=== PATIENT | female | born 1955 | race Caucasian/White ===

== ENCOUNTER 2017-04-05 13:25 | Inpatient (IN) | payer OTHER ==
[~2017-04-05] VITALS: Ht 167.6 cm; Wt 122.5 kg
--- NOTE | ~2017-04-05 | WRIGHTHP ---
[place], [place] PATIENT HISTORY AND PHYSICAL EXAM NAME: CRISTIANA SHIPMAN [facility] #: [id number] UNIT #: [id number] ROOM: 502 DOCTOR: JOSH FORDE MD BIRTHDATE: [birth year] DOS: 04/05/2017 HISTORY OF PRESENT ILLNESS: The patient is a 61-year-old female with a past medical history of morbid obesity, type 2 diabetes mellitus, insulin requiring, mixed hyperlipidemia, coronary artery disease, status post two stent placements, benign essential hypertension, rheumatoid arthritis, chronic respiratory failure with oxygen dependence and COPD. The patient presented to the Emergency Department at [facility] with upper abdominal, back and lower chest pains, off and on with no nausea, no vomiting. After initial evaluation in the Emergency Department, she was admitted and seen by Dr. Rambo Ahmadi at the ER. The patient is feeling somewhat better now after initial treatment in the Emergency Department for nausea and vomiting. No increasing shortness of breath, no wheezing, no other GI or urinary symptoms. No diarrhea, no dizziness or fainting episodes. REVIEW OF SYSTEMS: LUNGS: No increasing shortness of breath or wheezing. GASTROINTESTINAL: The patient had some nausea and vomiting at home. No diarrhea. CARDIOVASCULAR SYSTEM: Lower chest pains, no palpitations. ALLERGIES: KNOWN ALLERGIES TO IODINE. FAMILY HISTORY: Noncontributory. HOME MEDICATIONS: Aspirin, metoprolol, losartan, Lipitor, aspirin. PHYSICAL EXAMINATION: GENERAL: Alert and oriented x 3, in no visible distress, morbidly obese, standard exam except for generalized weakness. IMPRESSION: 1. Viral gastroenteritis causing nausea, vomiting, abdominal pains and back pains. The pancreatic enzymes were not elevated. We will treat conservatively her symptoms. The patient's symptoms have improved with initial treatment in the Emergency Department and I will give her diet as tolerated. The patient is already hungry and wants to eat. 2. Chest pains from uncertain etiology. We will check cardiac enzymes and the patient is already scheduled for a cardiac stress test in the morning. 3. Type 2 diabetes mellitus. Blood sugars seem to be reasonably controlled. 4. Mixed hyperlipidemia, improving. Plan to continue the patient on Lipitor. 5. Benign essential hypertension. Monitor blood pressures and treat accordingly. [place], [place] PATIENT HISTORY AND PHYSICAL EXAM NAME: CRISTIANA SHIPMAN UNIT #: [id number] ROOM: [facility] DOCTOR: MAURISIO RICHARDSON,JOSH Pascual BIRTHDATE: [birth year] JOSH FORDE MD CM:HISPHYS:PATIENT HISTORY AND PHYSICAL EXAMINATION 10 37 JOSH FORDE MD 04/05/171938 interface
--- NOTE | ~2017-04-05 | ST ---
[place], [place] EXERCISE STRESS TEST REPORT [id number] #: [id number] ROOM: 502 DOCTOR: THEO PRAJAPATI MD BIRTHDATE: [birth year] DOS: 04/06/2017 LEXISCAN STRESS EKG REFERRING PHYSICIAN: Dr. Moy. INDICATION: Central chest pain. The patient underwent standard protocol Lexiscan stress EKG. The patient's baseline EKG showed normal sinus rhythm, right bundle branch block, left anterior fascicular block with known nonspecific ST-T wave changes. The patient's baseline heart rate 72 with a blood pressure 136/78. The patient's peak heart rate was 93 with a blood pressure of 130/84. The patient had no chest pain, no EKG changes, no ischemic changes. SUMMARY OF FINDINGS: Unremarkable Lexiscan stress, please see separate report for perfusion scan results. THEO PRAJAPATI MD CM:STRESS:EXERCISE STRESS TEST REPORT [id number] THEO PRAJAPATI MD
--- NOTE | ~2017-04-05 | DS ---
[place], [place] DISCHARGE SUMMARY NAME: CRISTIANA SHIPMAN [facility] #: [id number] UNIT #: [id number] ROOM: 502 DOCTOR: MAURISIO RICHARDSONJOSH Samara BIRTHDATE: [birth year] DOS: 04/07/2017 DISCHARGE DIAGNOSES: 1. Musculoskeletal chest pains. 2. Normal cardiac stress test. 3. CT angiogram of the chest negative for pulmonary embolism. 4. Morbid obesity. 5. Type 2 diabetes mellitus, insulin requiring. 6. Mixed type hyperlipidemia. 7. Coronary artery disease of the [place] vessels status post 2 stents placement. 8. Essential hypertension. 9. Rheumatoid arthritis. 10. Chronic respiratory failure from chronic obstructive pulmonary disease with oxygen dependence. The patient presented to [facility] Emergency Department with complaints of recurrent upper abdominal and lower chest pains and back pains. The patient was admitted and ruled out for myocardial infarction with serial cardiac enzymes. Following this, the patient was taken for a cardiac stress test by Dr. Ahmadi, the supply controller and the stress test was found to be normal. The patient's pains did resolve. 1. Abdominal and back pains with some nausea and vomiting earlier, apparently from viral gastroenteritis, resolved. 2. The patient with shortness of breath and chest pains, underwent a CT angiogram which was negative for any . 3. Mixed hyperlipidemia, treated and followed and controlled; treated with Lipitor. 4. History of benign essential hypertension. Blood pressures are monitored and treated. The patient takes metoprolol and refuses to take Losartan. The patient can be discharged to home after clearance by Dr. Ahmadi, the supply controller and to follow up with her primary care physician, Dr. Victor Manuel Eid in less than a week. LABORATORY DATA: Urine cultures were negative. Cardiac stress test and CT angiogram were negative. Normal serum electrolytes. DISCHARGE MANAGEMENT: Potassium chloride 10 mEq daily, Lipitor 40 mg a day, gabapentin 300 mg at bedtime, Paxil 30 mg a day, aspirin 81 mg a day, metoprolol 50 mg b.i.d., hydrochlorothiazide 25 mg a day, Losartan 100 mg a day which the patient refuses to take, bupivacaine eye drops as directed. Follow up with Dr. Victor Manuel Eid. [place], [place] DISCHARGE SUMMARY NAME: CRISTIANA SHIPMAN UNIT #: [id number] ROOM: 502 DOCTOR: JOSH FORDE MD BIRTHDATE: [birth year] JOSH FORDE MD CM:SAVANA [id number] JOSH FORDE MD 04/07/17 1346 interface
--- NOTE | ~2017-04-05 | PR ---
[place], [place] PROGRESS NOTE NAME[id number] UN[facility] #: [id number] ROOM: 502 DOCTOR: JOSH FORDE MD BIRTHDATE: [birth year] DOS: 04/06/2017 SUBJECTIVE: The patient underwent cardiac stress testing this morning and she was overall feeling better. OBJECTIVE: VITAL SIGNS: Blood pressure 140/73, heart rate 80 beats per minute, breathing 16 times per minute, temperature 98 degrees Fahrenheit. Standard exam except for obesity. IMPRESSION: 1. The patient with chest pain, normal cardiac stress test and cardiac enzymes. 2. Elevated D-dimmers, the patient is being checked for pulmonary embolism by Dr. Ahmadi. 3. Benign essential hypertension with controlled blood pressures with treatment. 4. Type 2 diabetes mellitus with blood sugars ranging between 100-200 range, being monitored and controlled. 5. Mixed hyperlipidemia, treated with Lipitor. 6. Nausea, vomiting and abdominal pains have improved, probably from viral gastroenteritis. JOSH FORDE MD CM:PNTRANS [phone] [id number] JOSH FORDE MD 04/06/17 2259 interface
[~2017-04-05 13:25] MED LIST: ASPIRIN ADULT L81 M1 PO; CIPROFLOXACIN500 M4 PO; CRESTOR10 MG PO; CRESTOR20 M1 PO; EFFIENT10 MG PO; FLUOXETINE10 M1 PO; GABAPENTIN300 M1 PO; Hyzaar 25 MG-101 TAB; JANUMET 1000 MG1 TAB PO; JANUMET XR 50-1 EAC1 PO; KEFLEX500 MG PO; LASIX40 MG PO; LEVEMIR100 U/ML SC; LOPRESSOR50 MG PO; LOSARTAN POTASS1 TA2 PO; METHOTREXATE1 PO1 PO; METHOTREXATE2.5 M1 PO; METOPROLOL SR50 MG PO; MICRO-K 10 EXT10 MEQ PO; MULTIVITAMIN FO1 CAP PO; NOVOLOG FLEX100 U/ML SC; PAROXETINE20 MG PO; PAXIL20 MG; PAXIL30 M2 PO; PERCOCET 325 MG1 TA2 PO; POTASSIUM CHLO10 ME4 PO; PREDNISONE10 MG PO; RANEXA1000 MG PO; RANEXA500 MG PO; REMICADE100 MG IM; REMICADE100 MG IV; TEMAZEPAM15 M1 PO; TRAMADOL HCL50 MG PO; TREXALL5 MG PO; TRICOR145 MG PO; TRICOR48 MG; VICODIN 500 MG-1 TAB PO
[2017-04-05 13:34] VITALS: BP 184/90
[2017-04-05 13:58] VITALS: BP 184/102
[2017-04-05 14:17] LABS: BASO % 0.4 % (0.0-1.0); EOS # 0.1 10*3/uL (0.0-0.4); EOS % 1.4 % (1.0-4.0); HEMATOCRIT 36.6 % (37.0-47.0); HEMOGLOBIN 11.9 g/dl (12.0-16.0); LYMPH # 1.3 10*3/uL (1.3-4.4); LYMPH % 15.3 % (27.0-41.0); MEAN CELL VOLUME 86.9 fl (81.0-99.0); MEAN CORPUSCULAR HGB 28.3 pg (27.0-31.0); MEAN CORPUSCULAR HGB CONC 32.5 g/dl (33.0-37.0); MEAN PLATELET VOLUME 9.6 fl (9.6-12.3); MONO # 0.6 10*3/uL (0.1-1.0); MONO % 7.1 % (3.0-9.0); NEUT # 6.4 10*3/uL (2.3-7.9); NEUT % 75.4 % (47.0-73.0); PLATELET COUNT AUTOMATED 190 10*3/uL (130-400); RED BLOOD COUNT 4.21 10*6/uL (4.10-5.10); RED CELL DISTRI WIDTH 15.9 % (0-14.5); WHITE BLOOD COUNT 8.4 10*3/uL (4.8-10.8)
[2017-04-05 14:23] VITALS: BP 164/90
[2017-04-05 14:26] LABS: PROTHROMBIN TIME 10.3 SECONDS (9.0-12.4)
[2017-04-05 14:33] LABS: ALBUMIN 3.1 gm/dl (3.1-4.5); ALKALINE PHOSPHATASE 67 U/L (45-117); BILIRUBIN, TOTAL 0.8 mg/dl (0.2-1.0); BUN 14 mg/dl (7-24); CARBON DIOXIDE 28 mmol/L (21-32); CHLORIDE 104 mmol/L (98-107); EST GLOM FILT AFRICAN AMERICAN > 60 ml/min; GLUCOSE 129 mg/dL (65-99); MAGNESIUM 1.5 mg/dL (1.5-2.1); SGOT/AST 20 IU/L (3-35); SGPT/ALT 21 U/L (12-78); SODIUM 140 mmol/L (136-145); TOTAL PROTEIN 8.1 gm/dL (6.4-8.2)
[2017-04-05 14:34] LABS: TROPONIN I < 0.015 ng/ml (<0.045)
[2017-04-05 15:55] VITALS: BP 164/79
[2017-04-05 16:32] VITALS: BP 181/95
[2017-04-05 20:00] VITALS: BP 142/74
[2017-04-05 20:00] LABS: BILIRUBIN NEGATIVE (NEGATIVE); BLOOD TRACE-INTACT (NEGATIVE); CLARITY CLOUDY (CLEAR); COLOR YELLOW (YELLOW); GLUCOSE NEGATIVE (NEGATIVE); KETONE NEGATIVE (NEGATIVE); LEUKO ESTERASE TRACE (NEGATIVE); NITRITE NEGATIVE (NEGATIVE); PH 5.5 (5.0-9.0); PROTEIN 2+ (NEGATIVE); SPECIFIC GRAVITY >= 1.030 (1.005-1.030); UROBILINOGEN 0.2 E.U./dl (0.2-1.0)
[2017-04-05 20:08] LABS: BACTERIA 1+; URINE REFLEX COMMENT YES (NO)
[2017-04-06] VITALS: BP 157/92
[2017-04-06 04:00] VITALS: BP 158/82
[2017-04-06 07:56] VITALS: BP 127/61
[2017-04-06 12:00] VITALS: BP 124/73
[2017-04-06 16:00] VITALS: BP 140/73
[2017-04-06 20:00] VITALS: BP 138/76
[2017-04-07] VITALS: BP 149/89
[2017-04-07 08:00] VITALS: BP 152/76
[2017-04-07 12:00] VITALS: BP 155/81
== END 2017-04-07 16:00 | disposition home or self-care (01) | DRG 392 ==
LOC: ED 13:25 → 5E 15:46 → EDHOLD 15:46 → 5E 15:48
PROVIDERS: Student in an Organized Health Care Education/Training Program
PROC: 5A09357 Assistance with Respiratory Ventilation, Less than 24 Consecutive Hours, Continuous Positive Airway Pressure (ICD-10-PCS; principal; 2017-04-06)
PROC: 4A02XM4 Measurement of Cardiac Total Activity, External Approach (ICD-10-PCS; principal; 2017-04-06)
PROC: 3E073KZ Introduction of Other Diagnostic Substance into Coronary Artery, Percutaneous Approach (ICD-10-PCS; principal; 2017-04-06)
DX: A08.4 Viral intestinal infection, unspecified (principal); J96.10 Chronic respiratory failure, unspecified whether with hypoxia or hypercapnia; I27.2 Other secondary pulmonary hypertension; F33.9 Major depressive disorder, recurrent, unspecified; Z68.41 Body mass index [BMI] 40.0-44.9, adult; Z99.81 Dependence on supplemental oxygen; E66.01 Morbid (severe) obesity due to excess calories; E11.9 Type 2 diabetes mellitus without complications; E78.2 Mixed hyperlipidemia; I25.10 Atherosclerotic heart disease of native coronary artery without angina pectoris; J44.9 Chronic obstructive pulmonary disease, unspecified; I10 Essential (primary) hypertension; M06.9 Rheumatoid arthritis, unspecified; R07.89 Other chest pain; Z91.041 Radiographic dye allergy status; Z95.818 Presence of other cardiac implants and grafts; Z79.2 Long term (current) use of antibiotics; Z79.82 Long term (current) use of aspirin; Z79.4 Long term (current) use of insulin; Z79.899 Other long term (current) drug therapy

== ENCOUNTER 2017-06-14 22:51 | Emergency (ER) | payer OTHER ==
[~2017-06-14] VITALS: Ht 167.6 cm; Wt 117.9 kg
[2017-06-14 22:57] VITALS: BP 190/91
== END 2017-06-15 01:22 | disposition home or self-care (01) ==
LOC: ED 22:51
DX: S46.911A Strain of unspecified muscle, fascia and tendon at shoulder and upper arm level, right arm, initial encounter (principal); I12.9 Hypertensive chronic kidney disease with stage 1 through stage 4 chronic kidney disease, or unspecified chronic kidney disease; E11.22 Type 2 diabetes mellitus with diabetic chronic kidney disease; N18.3 Chronic kidney disease, stage 3 (moderate); Z91.041 Radiographic dye allergy status; Z79.4 Long term (current) use of insulin; Z79.82 Long term (current) use of aspirin; Z79.899 Other long term (current) drug therapy; M06.9 Rheumatoid arthritis, unspecified; W19.XXXA Unspecified fall, initial encounter; Y93.89 Activity, other specified; Y92.89 Other specified places as the place of occurrence of the external cause; Y99.8 Other external cause status

== ENCOUNTER → 2017-06-22 | Outpatient (CLI) | payer OTHER ==
[2017-06-22 11:56] LABS: HEMATOCRIT 36.7 % (37.0-47.0); HEMOGLOBIN 11.8 g/dl (12.0-16.0); MEAN CELL VOLUME 92.2 fl (81.0-99.0); MEAN CORPUSCULAR HGB 29.6 pg (27.0-31.0); MEAN CORPUSCULAR HGB CONC 32.2 g/dl (33.0-37.0); MEAN PLATELET VOLUME 9.7 fl (9.6-12.3); NUCLEATED RED BLOOD CELL 0.2 % (0.0-0.0); RED BLOOD COUNT 3.98 10*6/uL (4.10-5.10); RED CELL DISTRI WIDTH 17.5 % (0-14.5); WHITE BLOOD COUNT 11.9 10*3/uL (4.8-10.8)
[2017-06-22 12:33] LABS: ALBUMIN 3.1 gm/dl (3.1-4.5); ALKALINE PHOSPHATASE 86 U/L (45-117); BUN 19 mg/dl (7-24); CHLORIDE 99 mmol/L (98-107); CHOLESTEROL 139 mg/dL (<200); CREATININE 0.95 mg/dL (0.55-1.02); HDL CHOLESTEROL 32 mg/dl (40-60); LDL CHOLESTEROL 46 mg/dL (9-159); POTASSIUM 4.3 mmol/L (3.5-5.1); SGOT/AST 21 IU/L (3-35); SGPT/ALT 24 U/L (12-78); SODIUM 138 mmol/L (136-145); TOTAL PROTEIN 8.3 gm/dL (6.4-8.2); TRIGLYCERIDES 307 mg/dl (<150); VLDL CHOLESTEROL 61 mg/dL (6-40)
== END | disposition home or self-care (01) ==
LOC: LAB 10:55
PROVIDERS: Family Medicine
DX: E11.9 Type 2 diabetes mellitus without complications (principal); I10 Essential (primary) hypertension

== ENCOUNTER → 2017-08-05 | Outpatient (CLI) | payer OTHER | END | disposition home or self-care (01) | LOC: LAB 17:09 | DX: M06.9 Rheumatoid arthritis, unspecified (principal); Z79.899 Other long term (current) drug therapy ==

== ENCOUNTER → 2017-08-12 | Outpatient (CLI) | payer OTHER ==
[2017-08-12 10:32] LABS: BASO % 0.4 % (0.0-1.0); EOS # 0.2 10*3/uL (0.0-0.4); HEMOGLOBIN 11.7 g/dl (12.0-16.0); LYMPH # 2.1 10*3/uL (1.3-4.4); LYMPH % 22.1 % (27.0-41.0); MEAN CELL VOLUME 91.6 fl (81.0-99.0); MEAN CORPUSCULAR HGB CONC 31.6 g/dl (33.0-37.0); MEAN PLATELET VOLUME 9.8 fl (9.6-12.3); MONO # 0.9 10*3/uL (0.1-1.0); MONO % 8.9 % (3.0-9.0); NEUT # 6.4 10*3/uL (2.3-7.9); NEUT % 66.2 % (47.0-73.0); PLATELET COUNT AUTOMATED 251 10*3/uL (130-400); RED BLOOD COUNT 4.04 10*6/uL (4.10-5.10); RED CELL DISTRI WIDTH 16.5 % (0-14.5); WHITE BLOOD COUNT 9.7 10*3/uL (4.8-10.8)
[2017-08-12 11:00] LABS: ALBUMIN 2.8 gm/dl (3.1-4.5); ALKALINE PHOSPHATASE 66 U/L (45-117); BUN 13 mg/dl (7-24); CHLORIDE 101 mmol/L (98-107); CHOLESTEROL 130 mg/dL (<200); CREATININE 0.88 mg/dL (0.55-1.02); HDL CHOLESTEROL 42 mg/dl (40-60); LDL CHOLESTEROL 43 mg/dL (9-159); POTASSIUM 3.7 mmol/L (3.5-5.1); SGOT/AST 13 IU/L (3-35); SGPT/ALT 17 U/L (12-78); SODIUM 139 mmol/L (136-145); TOTAL PROTEIN 7.8 gm/dL (6.4-8.2); TRIGLYCERIDES 226 mg/dl (<150); VLDL CHOLESTEROL 45 mg/dL (6-40)
== END | disposition home or self-care (01) ==
LOC: LAB 09:33
PROVIDERS: Internal Medicine
DX: M54.2 Cervicalgia (principal); R07.81 Pleurodynia; I10 Essential (primary) hypertension; E78.2 Mixed hyperlipidemia

== ENCOUNTER → 2017-10-04 | Outpatient (CLI) | payer OTHER | END | disposition home or self-care (01) | LOC: RAD 15:39 | DX: M25.572 Pain in left ankle and joints of left foot (principal); V89.2XXA Person injured in unspecified motor-vehicle accident, traffic, initial encounter; Y93.89 Activity, other specified; Y92.89 Other specified places as the place of occurrence of the external cause; Y99.8 Other external cause status ==

== ENCOUNTER → 2017-10-14 | Outpatient (CLI) | payer OTHER | END | disposition home or self-care (01) | LOC: US 08:28 | DX: S89.202A Unspecified physeal fracture of upper end of left fibula, initial encounter for closed fracture (principal) ==

== ENCOUNTER 2017-11-01 12:26 | Inpatient (IN) | payer OTHER ==
[~2017-11-01] VITALS: Ht 170.1 cm; Wt 118.4 kg
[2017-11-01] VITALS (7 sets, daily range): BP systolic 152–209; BP diastolic 82–98
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
[~2017-11-01 12:26] MED LIST changes: -LEVEMIR100 U/ML SC; +LEVEMIR100 UNIT/1 SQ; +LOPRESSOR50 M1 PO; -LOPRESSOR50 MG PO; +NOVOLOG FL100 UNIT/1 SQ; -REMICADE100 MG IM
[2017-11-01 13:38] LABS: BASO % 0.5 % (0.0-1.0); EOS # 0.2 10*3/uL (0.0-0.4); EOS % 2.1 % (1.0-4.0); HEMATOCRIT 35.4 % (37.0-47.0); HEMOGLOBIN 11.3 g/dl (12.0-16.0); LYMPH % 26.7 % (27.0-41.0); MEAN CELL VOLUME 90.8 fl (81.0-99.0); MEAN CORPUSCULAR HGB CONC 31.9 g/dl (33.0-37.0); MONO # 0.6 10*3/uL (0.1-1.0); MONO % 8.2 % (3.0-9.0); NEUT # 4.7 10*3/uL (2.3-7.9); NEUT % 61.7 % (47.0-73.0); PLATELET COUNT AUTOMATED 263 10*3/uL (130-400); RED CELL DISTRI WIDTH 18.3 % (0-14.5); WHITE BLOOD COUNT 7.7 10*3/uL (4.8-10.8)
[2017-11-01 13:52] LABS: ALBUMIN 3.2 gm/dl (3.1-4.5); ALKALINE PHOSPHATASE 75 U/L (45-117); BUN 13 mg/dl (7-24); CHLORIDE 103 mmol/L (98-107); CREATININE 0.92 mg/dL (0.55-1.02); SGOT/AST 19 IU/L (3-35); SGPT/ALT 21 U/L (12-78); SODIUM 141 mmol/L (136-145)
[2017-11-01] MEDS ORDERED: LOSARTAN POTASS50 M1 PO (15:15)
[2017-11-01 15:26] LABS: BILIRUBIN NEGATIVE (NEGATIVE); BLOOD TRACE-LYSED (NEGATIVE); CLARITY SL CLOUDY (CLEAR); COLOR YELLOW (YELLOW); GLUCOSE NEGATIVE (NEGATIVE); KETONE NEGATIVE (NEGATIVE); LEUKO ESTERASE NEGATIVE (NEGATIVE); NITRITE NEGATIVE (NEGATIVE); PH 6.5 (5.0-9.0); SPECIFIC GRAVITY 1.025 (1.005-1.030)
[2017-11-01 15:33] LABS: BACTERIA 2+
[2017-11-01] MEDS ORDERED: METHOTREXATE2.5 M1 PO (17:14)
[2017-11-02] VITALS: BP 144/59
[2017-11-02 08:00] VITALS: BP 134/66
[2017-11-02 12:00] VITALS: BP 135/83
[2017-11-02 16:00] VITALS: BP 143/79
[2017-11-02 20:00] VITALS: BP 136/65
[2017-11-03] VITALS: BP 141/76
[2017-11-03] MEDS ORDERED: LOSARTAN POTAS100 M1 PO (07:56)
[2017-11-03 08:00] VITALS: BP 134/63
[2017-11-03 12:00] VITALS: BP 137/75
[2017-11-03 14:00] VITALS: BP 137/75
== END 2017-11-03 16:02 | disposition home or self-care (01) | DRG 291 ==
LOC: ED 12:26 → 4E 15:09 → EDHOLD 15:09 → 4E 15:12
PROVIDERS: Nurse Practitioner Family
DX: I13.0 Hypertensive heart and chronic kidney disease with heart failure and stage 1 through stage 4 chronic kidney disease, or unspecified chronic kidney disease (principal); I50.31 Acute diastolic (congestive) heart failure; J96.10 Chronic respiratory failure, unspecified whether with hypoxia or hypercapnia; E11.22 Type 2 diabetes mellitus with diabetic chronic kidney disease; E66.01 Morbid (severe) obesity due to excess calories; F33.9 Major depressive disorder, recurrent, unspecified; Z68.41 Body mass index [BMI] 40.0-44.9, adult; I16.0 Hypertensive urgency; N18.3 Chronic kidney disease, stage 3 (moderate); R07.89 Other chest pain; I25.10 Atherosclerotic heart disease of native coronary artery without angina pectoris; M06.9 Rheumatoid arthritis, unspecified; J44.9 Chronic obstructive pulmonary disease, unspecified; E78.2 Mixed hyperlipidemia; Z95.5 Presence of coronary angioplasty implant and graft; Z91.041 Radiographic dye allergy status; Z79.82 Long term (current) use of aspirin; Z79.4 Long term (current) use of insulin; Z79.899 Other long term (current) drug therapy; Z87.81 Personal history of (healed) traumatic fracture

== ENCOUNTER → 2018-06-20 | Outpatient (CLI) | payer OTHER ==
[~2018-06-20] MED LIST changes: +LOSARTAN POTAS100 M1 PO; +LOSARTAN POTASS50 M1 PO
[2018-06-20 16:04] LABS: BASO # 0.1 10*3/uL (0.0-0.1); BASO % 0.5 % (0.0-1.0); EOS # 0.2 10*3/uL (0.0-0.4); EOS % 2.2 % (1.0-4.0); HEMATOCRIT 37.4 % (37.0-47.0); HEMOGLOBIN 12.2 g/dl (12.0-16.0); LYMPH # 2.6 10*3/uL (1.3-4.4); LYMPH % 27.3 % (27.0-41.0); MEAN CELL VOLUME 91.4 fl (81.0-99.0); MEAN CORPUSCULAR HGB 29.8 pg (27.0-31.0); MEAN CORPUSCULAR HGB CONC 32.6 g/dl (33.0-37.0); MEAN PLATELET VOLUME 9.4 fl (9.6-12.3); MONO # 0.5 10*3/uL (0.1-1.0); MONO % 5.4 % (3.0-9.0); NEUT % 64.3 % (47.0-73.0); PLATELET COUNT AUTOMATED 233 10*3/uL (130-400); RED BLOOD COUNT 4.09 10*6/uL (4.10-5.10); RED CELL DISTRI WIDTH 15.8 % (0-14.5); WHITE BLOOD COUNT 9.3 10*3/uL (4.8-10.8)
[2018-06-20 16:30] LABS: BUN 13 mg/dl (7-24); CREATININE 1.02 mg/dL (0.55-1.02); SGOT/AST 21 IU/L (3-35); SGPT/ALT 21 U/L (12-78)
== END | disposition home or self-care (01) ==
LOC: LAB 15:45
PROVIDERS: Specialist
DX: M06.9 Rheumatoid arthritis, unspecified (principal); Z79.899 Other long term (current) drug therapy

== ENCOUNTER → 2018-10-12 | Outpatient (CLI) | payer OTHER ==
[~2018-10-12] MED LIST changes: +MEDROL DOSEPAK4 MG PO
[2018-10-12 13:12] LABS: BASO # 0.1 10*3/uL (0.0-0.1); BASO % 0.7 % (0.0-1.0); EOS # 0.2 10*3/uL (0.0-0.4); EOS % 1.9 % (1.0-4.0); HEMATOCRIT 38.7 % (37.0-47.0); HEMOGLOBIN 12.5 g/dl (12.0-16.0); LYMPH # 1.8 10*3/uL (1.3-4.4); LYMPH % 22.3 % (27.0-41.0); MEAN CELL VOLUME 93.9 fl (81.0-99.0); MEAN CORPUSCULAR HGB 30.3 pg (27.0-31.0); MEAN CORPUSCULAR HGB CONC 32.3 g/dl (33.0-37.0); MEAN PLATELET VOLUME 9.8 fl (9.6-12.3); MONO # 0.7 10*3/uL (0.1-1.0); MONO % 8.1 % (3.0-9.0); NEUT # 5.4 10*3/uL (2.3-7.9); NEUT % 66.5 % (47.0-73.0); PLATELET COUNT AUTOMATED 267 10*3/uL (130-400); RED BLOOD COUNT 4.12 10*6/uL (4.10-5.10); RED CELL DISTRI WIDTH 16.5 % (0-14.5)
[2018-10-12 13:42] LABS: BUN 16 mg/dl (7-24); CREATININE 1.02 mg/dL (0.55-1.02); SGOT/AST 19 IU/L (3-35); SGPT/ALT 20 U/L (12-78)
== END | disposition home or self-care (01) ==
LOC: LAB 12:26
PROVIDERS: Specialist
DX: M06.9 Rheumatoid arthritis, unspecified (principal); Z79.899 Other long term (current) drug therapy

== ENCOUNTER 2018-11-06 16:46 | Emergency (ER) | payer OTHER ==
[~2018-11-06] VITALS: Ht 167.6 cm; Wt 120.2 kg
--- NOTE | ~2018-11-06 | EKG ---
[place], [place] ELECTROCARDIOGRAM REPORT NAME: CRISTIANA SHIPMAN UNIT #: [id number] ROOM: DOCTOR: EPIPHANY DRAFT REPORT BIRTHDATE: [birth year] [facility] Test Date: 2018-11-06 Test Time: 17:16:15 Pat Name: CRISTIANA SHIPMAN Department: Room: Gender: F Ep Tech: Carissa Chou : 1955 Requested By: DON GARCIA Order Number: [id number] Reading MD: Rambo Ahmadi MD Measurements Intervals [place] Rate: 86 P: 17 MI: 180 QRS: -68 QRSD: 142 T: 38 QT: 402 QTc: 481 Interpretive Statements Sinus rhythm Probable left atrial enlargement Right bundle branch block Left ventricular hypertrophy Inferior infarct, old Lateral leads are also involved No previous ECG available for comparison Electronically Signed On 11-10-2018 9:41:03 PST by Rambo Ahmadi MD CM:EKGRPT:ELECTROCARDIOGRAM REPORT [id number] DON GARCIA EPIPHANY DRAFT REPORT DON GARCIA
[~2018-11-06 16:46] MED LIST changes: -MEDROL DOSEPAK4 MG PO
[2018-11-06 17:25] LABS: BASO % 0.5 % (0.0-1.0); EOS # 0.1 10*3/uL (0.0-0.4); EOS % 2.1 % (1.0-4.0); HEMATOCRIT 35.5 % (37.0-47.0); HEMOGLOBIN 11.5 g/dl (12.0-16.0); LYMPH # 1.1 10*3/uL (1.3-4.4); LYMPH % 18.4 % (27.0-41.0); MEAN CELL VOLUME 95.4 fl (81.0-99.0); MEAN CORPUSCULAR HGB 30.9 pg (27.0-31.0); MEAN CORPUSCULAR HGB CONC 32.4 g/dl (33.0-37.0); MEAN PLATELET VOLUME 9.1 fl (9.6-12.3); MONO # 0.8 10*3/uL (0.1-1.0); MONO % 12.5 % (3.0-9.0); NEUT # 4.1 10*3/uL (2.3-7.9); PLATELET COUNT AUTOMATED 167 10*3/uL (130-400); RED BLOOD COUNT 3.72 10*6/uL (4.10-5.10); RED CELL DISTRI WIDTH 16.9 % (0-14.5); WHITE BLOOD COUNT 6.2 10*3/uL (4.8-10.8)
[2018-11-06 17:35] LABS: ACT PARTIAL THROMBO TIME 22.3 SECONDS (20.8-31.5); INTERNATIONAL NORM RATIO 0.9 (2.0-3.5)
[2018-11-06 17:48] LABS: ALBUMIN 2.5 gm/dl (3.1-4.5); ALKALINE PHOSPHATASE 77 U/L (45-117); BUN 9 mg/dl (7-24); CHLORIDE 101 mmol/L (98-107); LIPASE 184 U/L (73-393); POTASSIUM 3.8 mmol/L (3.5-5.1); SGOT/AST 20 IU/L (3-35); SGPT/ALT 20 U/L (12-78); SODIUM 140 mmol/L (136-145); TOTAL PROTEIN 7.4 gm/dL (6.4-8.2); TROPONIN I 0.016 ng/ml (<0.045)
[2018-11-06 18:44] VITALS: BP 143/72
[2018-11-06] MEDS ORDERED: MEDROL DOSEPAK4 MG PO (18:54)
== END 2018-11-06 19:03 | disposition home or self-care (01) ==
LOC: ED 16:46
PROVIDERS: Nurse Practitioner Family
DX: J44.9 Chronic obstructive pulmonary disease, unspecified (principal); E11.22 Type 2 diabetes mellitus with diabetic chronic kidney disease; I13.0 Hypertensive heart and chronic kidney disease with heart failure and stage 1 through stage 4 chronic kidney disease, or unspecified chronic kidney disease; N18.3 Chronic kidney disease, stage 3 (moderate); I50.9 Heart failure, unspecified; Z91.041 Radiographic dye allergy status; Z79.899 Other long term (current) drug therapy; Z79.82 Long term (current) use of aspirin; Z79.4 Long term (current) use of insulin; Z79.84 Long term (current) use of oral hypoglycemic drugs; Z90.710 Acquired absence of both cervix and uterus; Z90.49 Acquired absence of other specified parts of digestive tract

== ENCOUNTER → 2019-03-22 | Outpatient (CLI) | payer OTHER ==
[~2019-03-22] MED LIST changes: +MEDROL DOSEPAK4 MG PO
[2019-03-22 15:26] LABS: BASO % 0.5 % (0.0-1.0); EOS # 0.2 10*3/uL (0.0-0.4); EOS % 2.4 % (1.0-4.0); HEMOGLOBIN 11.3 g/dl (12.0-16.0); LYMPH # 1.5 10*3/uL (1.3-4.4); MEAN CORPUSCULAR HGB 30.1 pg (27.0-31.0); MEAN CORPUSCULAR HGB CONC 31.4 g/dl (33.0-37.0); MEAN PLATELET VOLUME 9.7 fl (9.6-12.3); MONO # 0.5 10*3/uL (0.1-1.0); MONO % 7.7 % (3.0-9.0); NEUT # 4.2 10*3/uL (2.3-7.9); NEUT % 65.8 % (47.0-73.0); PLATELET COUNT AUTOMATED 216 10*3/uL (130-400); RED BLOOD COUNT 3.75 10*6/uL (4.10-5.10); RED CELL DISTRI WIDTH 16.4 % (0-14.5); WHITE BLOOD COUNT 6.4 10*3/uL (4.8-10.8)
[2019-03-22 15:54] LABS: BUN 13 mg/dl (7-24); CHLORIDE 101 mmol/L (98-107); CREATININE 1.05 mg/dL (0.55-1.02); POTASSIUM 4.4 mmol/L (3.5-5.1); SGOT/AST 15 IU/L (3-35); SGPT/ALT 16 U/L (12-78); SODIUM 138 mmol/L (136-145); TOTAL PROTEIN 7.5 gm/dL (6.4-8.2)
[2019-03-22 15:57] LABS: ALKALINE PHOSPHATASE 63 U/L (45-117); CHOLESTEROL 143 mg/dL (<200); CPK 112 U/L (26-192); HDL CHOLESTEROL 48 mg/dl (40-60); LDL CHOLESTEROL 50 mg/dL (9-159); TRIGLYCERIDES 223 mg/dl (<150); VLDL CHOLESTEROL 45 mg/dL (6-40)
== END | disposition home or self-care (01) ==
LOC: LAB 14:24
PROVIDERS: Specialist
DX: E55.9 Vitamin D deficiency, unspecified (principal); J44.9 Chronic obstructive pulmonary disease, unspecified; E78.00 Pure hypercholesterolemia, unspecified; R53.83 Other fatigue; E11.40 Type 2 diabetes mellitus with diabetic neuropathy, unspecified; M06.9 Rheumatoid arthritis, unspecified

== ENCOUNTER → 2019-10-01 | Outpatient (CLI) | payer OTHER ==
[2019-10-01 13:16] LABS: HEMOGLOBIN 12.8 g/dl (12.0-16.0); MEAN CELL VOLUME 93.5 fl (81.0-99.0); MEAN CORPUSCULAR HGB 29.9 pg (27.0-31.0); MEAN PLATELET VOLUME 9.8 fl (9.6-12.3); RED BLOOD COUNT 4.28 10*6/uL (4.10-5.10); RED CELL DISTRI WIDTH 14.7 % (0-14.5); WHITE BLOOD COUNT 9.3 10*3/uL (4.8-10.8)
[2019-10-01 13:52] LABS: ALBUMIN 2.7 gm/dl (3.1-4.5); CREATININE 1.2 mg/dL (0.55-1.02); POTASSIUM 4.2 mmol/L (3.5-5.1)
[2019-10-01 13:53] LABS: TOTAL PROTEIN 7.6 gm/dL (6.4-8.2)
== END ==
LOC: LAB 12:16
PROVIDERS: Nurse Practitioner Family
DX: I12.9 Hypertensive chronic kidney disease with stage 1 through stage 4 chronic kidney disease, or unspecified chronic kidney disease (principal); E11.22 Type 2 diabetes mellitus with diabetic chronic kidney disease; N18.3 Chronic kidney disease, stage 3 (moderate); E55.9 Vitamin D deficiency, unspecified; R05 Cough

== ENCOUNTER → 2019-10-31 | Outpatient (CLI) | payer OTHER | END | disposition home or self-care (01) | LOC: CT 10-16 13:00 | DX: J47.9 Bronchiectasis, uncomplicated (principal); I25.10 Atherosclerotic heart disease of native coronary artery without angina pectoris ==

== ENCOUNTER 2019-12-11 18:24 | Inpatient (IN) | payer OTHER ==
[~2019-12-11] VITALS: Ht 167.6 cm; Wt 116.7 kg
[2019-12-11 18:32] VITALS: BP 215/96
[2019-12-11 18:44] VITALS: BP 202/98
[2019-12-11 19:32] VITALS: BP 211/101
[2019-12-11 19:54] LABS: BASO # 0.1 10*3/uL (0.0-0.1); BASO % 0.9 % (0.0-1.0); EOS # 0.2 10*3/uL (0.0-0.4); HEMATOCRIT 39.3 % (37.0-47.0); HEMOGLOBIN 12.4 g/dl (12.0-16.0); LYMPH # 1.9 10*3/uL (1.3-4.4); LYMPH % 24.1 % (27.0-41.0); MEAN CELL VOLUME 93.6 fl (81.0-99.0); MEAN CORPUSCULAR HGB 29.5 pg (27.0-31.0); MEAN CORPUSCULAR HGB CONC 31.6 g/dl (33.0-37.0); MEAN PLATELET VOLUME 9.8 fl (9.6-12.3); MONO # 0.7 10*3/uL (0.1-1.0); MONO % 8.3 % (3.0-9.0); NEUT % 63.1 % (47.0-73.0); PLATELET COUNT AUTOMATED 247 10*3/uL (130-400)
[2019-12-11 20:03] LABS: BILIRUBIN NEGATIVE (NEGATIVE); BLOOD 1+ (NEGATIVE); CLARITY CLEAR (CLEAR); COLOR YELLOW (YELLOW); GLUCOSE 1+ (NEGATIVE); KETONE NEGATIVE (NEGATIVE)
[2019-12-11 20:04] LABS: BACTERIA 1+; LEUKO ESTERASE NEGATIVE (NEGATIVE); NITRITE NEGATIVE (NEGATIVE); UROBILINOGEN 0.2 E.U./dl (0.2-1.0)
[2019-12-11 20:09] LABS: ACT PARTIAL THROMBO TIME 24.1 SECONDS (20.0-32.1); INTERNATIONAL NORM RATIO 0.9 (2.0-3.5)
[2019-12-11 20:11] LABS: ALBUMIN 2.3 gm/dl (3.1-4.5); CREATININE 1.3 mg/dL (0.55-1.02); POTASSIUM 4.4 mmol/L (3.5-5.1); TOTAL PROTEIN 7.3 gm/dL (6.4-8.2)
[2019-12-11 20:17] LABS: TROPONIN I 0.069 ng/ml (<0.045)
[2019-12-11 20:50] VITALS: BP 212/110
[2019-12-11 21:25] VITALS: BP 175/81
[2019-12-11] MEDS ORDERED: LABETALOL HCL200 MG PO (21:40)
[2019-12-11] MEDS ORDERED: METOPROLOL25 MG PO (21:41)
[2019-12-11] MEDS ORDERED: OYSTER SHELL 51 EACH PO (21:43)
[2019-12-11] MEDS ORDERED: PAROXETINE HCL40 MG PO (21:44)
[2019-12-11] MEDS ORDERED: POTASSIUM CHLO20 ME4 PO (21:44)
[2019-12-11] MEDS ORDERED: ENALAPRIL MALEA20 MG PO (21:45)
[2019-12-11] MEDS ORDERED: HYDROCHLOROTHIA25 M1 PO (21:45)
[2019-12-12] VITALS (8 sets, daily range): BP systolic 138–198; BP diastolic 71–88
[2019-12-13] VITALS: BP 131/60
[2019-12-13 08:00] VITALS: BP 136/78
[2019-12-13 12:00] VITALS: BP 132/63
[2019-12-13 16:00] VITALS: BP 135/59
[2019-12-13 20:00] VITALS: BP 136/79
[2019-12-14] VITALS: BP 130/65
[2019-12-14 06:12] LABS: BASO # 0.1 10*3/uL (0.0-0.1); BASO % 0.7 % (0.0-1.0); EOS # 0.2 10*3/uL (0.0-0.4); EOS % 2.2 % (1.0-4.0); HEMOGLOBIN 12.3 g/dl (12.0-16.0); LYMPH # 2.2 10*3/uL (1.3-4.4); LYMPH % 25.5 % (27.0-41.0); MEAN CELL VOLUME 93.5 fl (81.0-99.0); MEAN CORPUSCULAR HGB 28.7 pg (27.0-31.0); MEAN CORPUSCULAR HGB CONC 30.8 g/dl (33.0-37.0); MEAN PLATELET VOLUME 9.9 fl (9.6-12.3); MONO # 0.9 10*3/uL (0.1-1.0); NEUT # 5.3 10*3/uL (2.3-7.9); NEUT % 61.3 % (47.0-73.0); PLATELET COUNT AUTOMATED 240 10*3/uL (130-400); RED BLOOD COUNT 4.28 10*6/uL (4.10-5.10); RED CELL DISTRI WIDTH 15.4 % (0-14.5); WHITE BLOOD COUNT 8.7 10*3/uL (4.8-10.8)
[2019-12-14 06:45] LABS: CREATININE 1.33 mg/dL (0.55-1.02)
[2019-12-14 08:00] VITALS: BP 124/53; BP 138/64
[2019-12-14] MEDS ORDERED: LASIX40 MG PO (08:34)
[2019-12-14] MEDS ORDERED: HYDRALAZINE HYD50 MG PO (08:34)
[2019-12-14] MEDS ORDERED: METOPROLOL SUCC50 M1 PO (08:34)
== END 2019-12-14 12:02 | disposition home health service (06) | DRG 291 ==
LOC: ED 18:24 → EDHOLD 20:46 → 4E 20:46
PROVIDERS: Physician Assistant; ADMIT Internal Medicine
PROC: 4A02XM4 Measurement of Cardiac Total Activity, External Approach (ICD-10-PCS; principal; 2019-12-13)
PROC: 3E073KZ Introduction of Other Diagnostic Substance into Coronary Artery, Percutaneous Approach (ICD-10-PCS; principal; 2019-12-13)
DX: I13.0 Hypertensive heart and chronic kidney disease with heart failure and stage 1 through stage 4 chronic kidney disease, or unspecified chronic kidney disease (principal); I50.33 Acute on chronic diastolic (congestive) heart failure; J44.0 Chronic obstructive pulmonary disease with (acute) lower respiratory infection; J96.10 Chronic respiratory failure, unspecified whether with hypoxia or hypercapnia; I16.9 Hypertensive crisis, unspecified; Z68.41 Body mass index [BMI] 40.0-44.9, adult; E78.2 Mixed hyperlipidemia; E66.01 Morbid (severe) obesity due to excess calories; F32.9 Major depressive disorder, single episode, unspecified; R79.89 Other specified abnormal findings of blood chemistry; J20.9 Acute bronchitis, unspecified; I16.0 Hypertensive urgency; N18.3 Chronic kidney disease, stage 3 (moderate); E11.22 Type 2 diabetes mellitus with diabetic chronic kidney disease; M06.9 Rheumatoid arthritis, unspecified; I25.10 Atherosclerotic heart disease of native coronary artery without angina pectoris; Z95.5 Presence of coronary angioplasty implant and graft; Z79.4 Long term (current) use of insulin; Z79.82 Long term (current) use of aspirin; Z79.899 Other long term (current) drug therapy; Z91.041 Radiographic dye allergy status; Z90.710 Acquired absence of both cervix and uterus; Z80.8 Family history of malignant neoplasm of other organs or systems

== ENCOUNTER → 2020-04-01 | Outpatient (CLI) | payer OTHER ==
[~2020-04-01] MED LIST changes: +ENALAPRIL MALEA20 MG PO; +HYDRALAZINE HYD50 MG PO; +HYDROCHLOROTHIA25 M1 PO; +LABETALOL HCL200 MG PO; +METOPROLOL SUCC50 M1 PO; +METOPROLOL25 MG PO; +OYSTER SHELL 51 EACH PO; +PAROXETINE HCL40 MG PO; +POTASSIUM CHLO20 ME4 PO
[2020-04-01 15:25] LABS: HEMATOCRIT 41.4 % (37.0-47.0); MEAN CORPUSCULAR HGB 28.6 pg (27.0-31.0); MEAN CORPUSCULAR HGB CONC 31.4 g/dl (33.0-37.0); MEAN PLATELET VOLUME 9.6 fl (9.6-12.3); RED BLOOD COUNT 4.55 10*6/uL (4.10-5.10); RED CELL DISTRI WIDTH 14.9 % (0-14.5); WHITE BLOOD COUNT 8.3 10*3/uL (4.8-10.8)
[2020-04-01 15:42] LABS: ALBUMIN 2.5 gm/dl (3.1-4.5); CREATININE 1.25 mg/dL (0.55-1.02); POTASSIUM 4.3 mmol/L (3.5-5.1); TOTAL PROTEIN 7.4 gm/dL (6.4-8.2)
== END | disposition home or self-care (01) ==
LOC: LAB 15:02
PROVIDERS: Family Medicine
DX: I10 Essential (primary) hypertension (principal); E78.00 Pure hypercholesterolemia, unspecified; E55.9 Vitamin D deficiency, unspecified; E11.9 Type 2 diabetes mellitus without complications

== ENCOUNTER 2020-04-04 19:51 | Inpatient (IN) | payer OTHER ==
[2020-04-04] VITALS (8 sets, daily range): BP systolic 152–220; BP diastolic 76–110
[~2020-04-04] VITALS: Ht 170.1 cm; Wt 116.7 kg
[2020-04-04 20:50] LABS: BASO # 0.1 10*3/uL (0.0-0.1); BASO % 0.6 % (0.0-1.0); EOS # 0.1 10*3/uL (0.0-0.4); EOS % 1.5 % (1.0-4.0); HEMATOCRIT 37.7 % (37.0-47.0); LYMPH # 1.8 10*3/uL (1.3-4.4); LYMPH % 21.4 % (27.0-41.0); MEAN CELL VOLUME 90.6 fl (81.0-99.0); MEAN CORPUSCULAR HGB 29.3 pg (27.0-31.0); MEAN CORPUSCULAR HGB CONC 32.4 g/dl (33.0-37.0); MEAN PLATELET VOLUME 9.5 fl (9.6-12.3); MONO # 0.6 10*3/uL (0.1-1.0); MONO % 7.3 % (3.0-9.0); NEUT # 5.9 10*3/uL (2.3-7.9); NEUT % 68.7 % (47.0-73.0); PLATELET COUNT AUTOMATED 220 10*3/uL (130-400); RED BLOOD COUNT 4.16 10*6/uL (4.10-5.10); RED CELL DISTRI WIDTH 14.9 % (0-14.5); WHITE BLOOD COUNT 8.6 10*3/uL (4.8-10.8)
[2020-04-04 21:06] LABS: ALBUMIN 2.2 gm/dl (3.1-4.5); CREATININE 1.2 mg/dL (0.55-1.02); POTASSIUM 3.8 mmol/L (3.5-5.1); TROPONIN I 0.031 ng/ml (<0.045)
[2020-04-04 21:08] LABS: ACT PARTIAL THROMBO TIME 23.6 SECONDS (20.0-32.1); INTERNATIONAL NORM RATIO 0.9 (2.0-3.5)
--- NOTE | 2020-04-04 21:33 | NUR ---
CARDENE INFUSION RUNNING AT 5MG/HR.
--- NOTE | 2020-04-04 21:37 | NUR ---
CARDENE TITRATED UP TO 7.[address] HARO ORDER
--- NOTE | 2020-04-04 21:56 | NUR ---
CARDENE TITRATED TO 10MG/HR PER DR. HARO VO
[2020-04-05 00:40] VITALS: BP 160/84
--- NOTE | 2020-04-05 00:40 | NUR ---
A 64, admitted to [facility]U, under the services of Dr. MAURISIO RICHARDSON,JOSH Pascual with a diagnosis of HYPERTENSIVE EMERGENCY. Chief complaint is ELEVATED BLOOD PRESSURE. Patient arrived via bed from ER. Monitor applied. Initial assessment completed. Vital signs taken and recorded. DR. MAURISIO RICHARDSON,JOSH Pascual notified of admission to the unit. Orders received. See assessment for past medical history, medications and allergies. Patient and/or family oriented to unit. [facility] visitation policy reviewed. Clothing/patient valuable form completed. GWEN HUBER
[2020-04-05] MEDS ORDERED: HYDROCHLOROTHIA25 M1 PO (01:13)
--- NOTE | 2020-04-05 03:44 | NUR ---
Patients bp 184/86, coreg and apresoline given early. Will monitor.
[2020-04-05 04:00] VITALS: BP 184/86
[2020-04-05 06:29] VITALS: BP 140/58
--- NOTE | 2020-04-05 07:50 | NUR ---
RESTING IN BED. NO VOICED COMPLAINTS. BP 145/67. PULSE OX 94% ON 3L NASAL CANNULA. LUNGS CLEAR BILATERALLY. 1+ PITTING EDEMA NOTED TO BILATERAL LOWER LEGS.
[2020-04-05 12:00] VITALS: BP 158/81
--- NOTE | 2020-04-05 12:43 | NUR ---
SITTING UP ON SIDE OF BED BATHING. NO VOICED COMPLAINTS
--- NOTE | 2020-04-05 12:56 | NUR ---
Blindmaker in to talk to patient. Patient states lives at HOME with ALONE. There are 3 steps in the home. Physician: NANCY [facility]acy: [facility] Home health services: NONE Patient's level of ADLs: INDEPENDENT Patient has working utilities: YES DME: WALKER IF NEEDED Follow-up physician's appointment after d/c: PREFERS TO MAKE OWN ON DISCHARGE Does patient want to access PORTAL?: NO Discharge plan PT LIVES AT HOME ALONE AND IS INDEPENDENT IN HER CARE. DISCUSSED HOME NEEDS ON DISCHARGE WITH PT. PT DECLINES SHE HAS ANY NEEDS AT THIS TIME. WILL CONTINUE TO FOLLOW. PT PLANS ARE TO RETURN HOME WHEN MEDICALLY STABLE. STATES SHE WILL HAVE A RIDE HOME. JOSE E SMALLS
--- NOTE | 2020-04-05 14:00 | NUR ---
DR. FORDE HERE TO SEE PATIENT
--- NOTE | 2020-04-05 15:45 | NUR ---
MEDICATED WITH TYLENOL FOR COMPLAINTS OF A HEADACHE
[2020-04-05 16:00] VITALS: BP 146/69
[2020-04-05 20:00] VITALS: BP 118/57
--- NOTE | 2020-04-05 22:10 | NUR ---
NASAL CANNULA AT 2L APPLIED TO PATIENT AT THIS TIME. PATIENT PULSE OX DECREASES WITH EXERTION AND WHEN SLEEPING. WILL CONTINUE TO MONITOR.
[2020-04-06] VITALS: BP 136/70
--- NOTE | 2020-04-06 | NUR ---
PATIENT RESTING COMFORTABLY IN BED AT THIS TIME. PATIENT HAS NO C/O PAIN, DISCOMFORT, OR SHORTNESS OF BREATHE. PATIENT IS A&OX3 AND AMBULATORY W/O ASSIST. LEGS ELEVATED TO HELP WITH SWELLING. HOB ELEVATED. CALL LIGHT WITHIN REACH. SEE ASSESSMENT.
[2020-04-06 04:00] VITALS: BP 131/56
[2020-04-06 05:30] LABS: BUN 15 mg/dl (7-24); CHLORIDE 101 mmol/L (98-107); CREATININE 1.11 mg/dL (0.55-1.02); POTASSIUM 4.1 mmol/L (3.5-5.1); SODIUM 138 mmol/L (136-145)
--- NOTE | 2020-04-06 07:40 | NUR ---
RESTING IN BED. DROWSY. VOICES NO COMPLAINTS. BP 112/54. PULSE OX 93% ON 3L NASAL CANNULA. 1+ PITTING EDEMA NOTED TO BILATERAL LOWER LEGS. HEP LOCK INTACT TO JETT.
[2020-04-06 08:00] VITALS: BP 112/54
--- NOTE | 2020-04-06 10:16 | NUR ---
DR. FORDE HERE. MEDICATED WITH 2 TYLENOL FOR COMPLAINTS OF A HEADACHE.
[2020-04-06] MEDS ORDERED: NORMODYNE,TRAN200 MG PO (11:07)
[2020-04-06] MEDS ORDERED: IMDUR SA30 MG PO (11:07)
--- NOTE | 2020-04-06 12:31 | NUR ---
Discharge instructions reviewed with patient/family. Patient receptive and verbalizes understanding. Follow-up care arranged. Written instructions given to patient/family. DON AGUILAR
== END 2020-04-06 12:31 | disposition home or self-care (01) | DRG 304 ==
LOC: ED 19:51 → EDHOLD 23:38 → ICCU 23:59
PROVIDERS: Emergency Medicine Emergency Medical Services; ADMIT Internal Medicine
DX: I16.1 Hypertensive emergency (principal); E43 Unspecified severe protein-calorie malnutrition; I50.33 Acute on chronic diastolic (congestive) heart failure; F33.0 Major depressive disorder, recurrent, mild; Z68.41 Body mass index [BMI] 40.0-44.9, adult; E66.01 Morbid (severe) obesity due to excess calories; E78.2 Mixed hyperlipidemia; E11.621 Type 2 diabetes mellitus with foot ulcer; J43.2 Centrilobular emphysema; L97.522 Non-pressure chronic ulcer of other part of left foot with fat layer exposed; L03.032 Cellulitis of left toe; I25.10 Atherosclerotic heart disease of native coronary artery without angina pectoris; I13.0 Hypertensive heart and chronic kidney disease with heart failure and stage 1 through stage 4 chronic kidney disease, or unspecified chronic kidney disease; M06.9 Rheumatoid arthritis, unspecified; N18.3 Chronic kidney disease, stage 3 (moderate); E11.22 Type 2 diabetes mellitus with diabetic chronic kidney disease; Z91.041 Radiographic dye allergy status; Z90.710 Acquired absence of both cervix and uterus; Z95.5 Presence of coronary angioplasty implant and graft; Z82.49 Family history of ischemic heart disease and other diseases of the circulatory system; Z80.8 Family history of malignant neoplasm of other organs or systems; Z79.899 Other long term (current) drug therapy; Z79.82 Long term (current) use of aspirin

== ENCOUNTER 2020-07-01 17:09 | Inpatient (IN) | payer MEDICARE ==
[~2020-07-01] VITALS: Ht 167.6 cm; Wt 115.9 kg
[2020-07-01] VITALS (8 sets, daily range): BP systolic 143–199; BP diastolic 54–105
[~2020-07-01 17:09] MED LIST changes: +IMDUR SA30 MG PO; +NORMODYNE,TRAN200 MG PO
[2020-07-01 18:09] LABS: BASO % 0.4 % (0.0-1.0); EOS # 0.1 10*3/uL (0.0-0.4); EOS % 1.4 % (1.0-4.0); HEMATOCRIT 37.7 % (37.0-47.0); LYMPH # 1.7 10*3/uL (1.3-4.4); LYMPH % 18.4 % (27.0-41.0); MEAN CELL VOLUME 88.7 fl (81.0-99.0); MEAN CORPUSCULAR HGB 28.5 pg (27.0-31.0); MEAN CORPUSCULAR HGB CONC 32.1 g/dl (33.0-37.0); MEAN PLATELET VOLUME 10.2 fl (9.6-12.3); MONO # 0.7 10*3/uL (0.1-1.0); MONO % 7.1 % (3.0-9.0); NEUT # 6.6 10*3/uL (2.3-7.9); NEUT % 72.3 % (47.0-73.0); PLATELET COUNT AUTOMATED 251 10*3/uL (130-400); RED BLOOD COUNT 4.25 10*6/uL (4.10-5.10); RED CELL DISTRI WIDTH 14.7 % (0-14.5); WHITE BLOOD COUNT 9.1 10*3/uL (4.8-10.8)
[2020-07-01 18:20] LABS: ACT PARTIAL THROMBO TIME 24.8 SECONDS (20.0-32.1); INTERNATIONAL NORM RATIO 0.9 (2.0-3.5)
[2020-07-01 18:25] LABS: ALBUMIN 2.4 gm/dl (3.1-4.5); CREATININE 1.23 mg/dL (0.55-1.02); POTASSIUM 3.8 mmol/L (3.5-5.1); TOTAL PROTEIN 7.5 gm/dL (6.4-8.2); TROPONIN I 0.023 ng/ml (<0.045)
--- NOTE | 2020-07-01 21:24 | NUR ---
PT DENIES WOUNDS. NOTES HEALING SCABBED AREA TO RIGHT POSTERIOR LEG.
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
--- NOTE | 2020-07-01 23:40 | NUR ---
DR. CALVILLO NOTIFIED OF ADMISSION. NEW ORDERS RECEIVED.
--- NOTE | 2020-07-02 02:10 | NUR ---
DR. PRAJAPATI'S ANSWERING SERVICE NOTIFIED OF CONSULT FOR PATIENT FOR HYPERTENSIVE URGENCY AND SYNCOPE AND COLLAPSE.
[2020-07-02 08:00] VITALS: BP 177/77
[2020-07-02 12:00] VITALS: BP 118/56
--- NOTE | 2020-07-02 12:17 | NUR ---
Public Area Attendant in to talk to patient. Patient states lives at HOME with ALONE. There are 3 OUTSIDE steps in the home. Physician: NANCY [facility]acy: [facility] Home health services: NONE Patient's level of ADLs: INDEPENDENT Patient has working utilities: YES DME: NONE Follow-up physician's appointment after d/c: WILL BE MADE BY HOSPITALIST NURSE DIRECTOR ON DISCHARGE Does patient want to access PORTAL?: NO Discharge plan PT LIVES AT HOME ALONE AND IS INDEPENDENT IN HER CARE. STATES SHE DOES NOT HAVE HOME HEALTH AT THIS TIME BUT WOULD LIKE THEM ON DISCHARGE. WILL OBTAIN ORDER AND SEND REFERRAL. PLAN IS TO RETURN HOME WHEN MEDICALLY STABLE. WILL CONTINUE TO FOLLOW. WILL HAVE A RIDE HOME.. JOSE E SMALLS
--- NOTE | 2020-07-02 13:05 | NUR ---
eating lunch, not available for echo.
--- NOTE | 2020-07-02 13:39 | NUR ---
MEDICATED WITH NORCO FOR COMPLAINTS OF LEFT SIDED RIB PAIN. RATES PAIN A 10 ON A PAIN SCALE OF 1-10
--- NOTE | 2020-07-02 13:39 | NUR ---
TAKEN TO MRI
--- NOTE | 2020-07-02 14:30 | NUR ---
VOICES THAT PAIN IS DOWN TO A 6 ON A PAIN SCALE OF 1-10
[2020-07-02 16:00] VITALS: BP 105/42
[2020-07-02 20:00] VITALS: BP 102/50
--- NOTE | 2020-07-02 20:24 | NUR ---
KENYON GIVEN PER ORDER FOR RIB FRACTURE PAIN PER PT. RATED "9" SEE MAR.
--- NOTE | 2020-07-02 21:20 | NUR ---
NORCO EFFECTIVE FOR REDUCING PAIN PER PT.
--- NOTE | 2020-07-02 21:20 | NUR ---
CALLED DR. FORDE AND NOTIFIED HIM OF BP 102/50 ORDER RECEIVED.
--- NOTE | 2020-07-02 21:51 | NUR ---
PATIENT REFUSED NEUROTIN.
[2020-07-03] VITALS (7 sets, daily range): BP systolic 108–159; BP diastolic 46–91
--- NOTE | 2020-07-03 02:01 | NUR ---
24 HR chart check completed.
--- NOTE | 2020-07-03 04:15 | NUR ---
AWAKEND C/O HEADACKE RATED "6" AND RIB FRACTURE PAIN RATED "9" WITH MOVEMENT. NORCO GIVEN PER ORDER FOR PAIN. SEE MAR.
--- NOTE | 2020-07-03 05:10 | NUR ---
NORCO EFFECTIVE FOR PAIN PER PT.
[2020-07-03 05:26] LABS: BILIRUBIN Negative (Negative); BLOOD Negative (Negative); CLARITY Clear (Clear); COLOR Yellow (Yellow); GLUCOSE 3+ (Negative); KETONE Negative (Negative); LEUKO ESTERASE Negative (Negative); NITRITE Negative (Negative); PH 5.5 (4.5-8.0); SPECIFIC GRAVITY 1.025 (1.001-1.030)
[2020-07-03 05:44] LABS: EPITHELIAL CELLS 31-40
[2020-07-03 05:45] LABS: BACTERIA 1+; HYALINE CAST 0-2
--- NOTE | 2020-07-03 06:00 | NUR ---
BATH GIVEN PATIENT WANTED TO BE UP IN CHAIR WHEN DR. CALVILLO CAME IN THIS AM. PATIENT IS ALERT AND ORIENTED X3 AND HAS CALL LIGHT WITHIN REACH WHEN SHE NEEDS TO GET UP REFUSED BODY ALARM WHILE IN CHAIR AND SAID SHE WOULD CALL FOR ASSISTANCE.
--- NOTE | 2020-07-03 08:13 | NUR ---
SITTING UP IN CHAIR, NO COMPLAINTS VOICED ASIDE FROM SLIGHT KRAFT. BELIEVES NORCO CAUSED THIS. DENIES ANY NEEDS AT THIS TIME. AT BEDSIDE.
--- NOTE | 2020-07-03 12:18 | NUR ---
PT CONTINUES TO STATE SHE WILL RETURN HOME WHEN MEDICALLY STABLE. WOULD LIKE [facility] ON DISCHARGE. HOSPITALIST NURSE DIRECTOR NOTIFIED. WILL CONTINUE TO FOLLOW.
--- NOTE | 2020-07-03 12:46 | NUR ---
TYLENOL GIVEN FOR COMPLAINTS OF HEADACHE, WILL MONITOR. CALL LIGHT IN REACH.
--- NOTE | 2020-07-03 13:36 | NUR ---
PER PT, TYLENOL WAS "SOMEWHAT" EFFECTIVE FOR KRAFT. DENIES FURTHER NEEDS AT THIS TIME. CALL LIGHT IN REACH.
--- NOTE | 2020-07-03 16:27 | NUR ---
DILAUDID GIVEN FOR COMPLAINT OF RT BACK PAIN, WORSENS WITH MOVEMENT, PAIN RATED 8/10. WILL MONITOR. CALL LIGHT IN REACH.
--- NOTE | 2020-07-03 16:59 | NUR ---
PER PT, DILAUDID WAS EFFECTIVE. CALL LIGHT IN REACH.
--- NOTE | 2020-07-03 19:00 | NUR ---
ASSUMED CARE FOR THIS PT AT THIS TIME. PT C/O LT SIDE RIB PAIN S/P FALL. PT TEACHING GIVEN ON DILAUDID PRN TIMES. PT STATES SHE HAD DIARRHEA EARLIER TODAY. PT SITTING UP IN RECLINER CHAIR. CALL LIGHT IN REACH.
--- NOTE | 2020-07-03 21:13 | NUR ---
DR. CALVILLO NOTIFIED OF PT'S C/O NAUSEA FROM IV DILAUDID. T.O. RCVD FOR ZOFRAN IVP 8MG EVERY 8 HRS PRN FOR N/V.
--- NOTE | 2020-07-03 21:47 | NUR ---
PT MEDICATED W/ZOFRAN 8MG IVP FOR C/O NAUSEA. TYRELL SIRIA OFFERED AND ACCEPTED. WARM BLANKET PLACED OVER PT FOR C/O CHILLS. CALL LIGHT IN REACH. PT SITTING ON SIDE OF BED.
--- NOTE | 2020-07-03 22:47 | NUR ---
PT STATES THAT ZOFRAN WAS SOMEWHAT EFFECTIVE FOR NAUSEA RELIEF. PT STILL SITTING ON SIDE OF BED. PT CONTINUES TO C/O H/A AND LT RIB PAIN. WILL CONTINUE TO MONITOR.
--- NOTE | 2020-07-03 23:53 | NUR ---
PT ASSISTED TO LIE DOWN. PT DENYING NEED FOR PAIN MED AT THIS TIME. CALL LIGHT IN REACH.
[2020-07-04] VITALS: BP 154/71
[2020-07-04 08:00] VITALS: BP 114/56
[2020-07-04] MEDS ORDERED: GLIMEPIRIDE4 M1 PO (09:36)
--- NOTE | 2020-07-04 11:00 | NUR ---
REFERRAL FAXED TO [facility].
[2020-07-04 12:00] VITALS: BP 102/51
--- NOTE | 2020-07-04 13:06 | NUR ---
PT DIZZY, NAUSEA, AND NOT FELING WELL. REUESING TO STAY ANOTHER NIGHT. INFORMED OF PT REQUEST. SAID HER INSURANCE WOULD NOT ALLOW FOR ANOTHER NIGHT AND CARDIO AGREED TO DISCHARGE. NEW ORDERS FOR BMP, CBC REC'D. IF OK, PT IS STILL TO BE DISCHARGED TODAY.
[2020-07-04 13:22] LABS: BASO % 0.2 % (0.0-1.0); EOS # 0.1 10*3/uL (0.0-0.4); EOS % 1.3 % (1.0-4.0); HEMATOCRIT 33.9 % (37.0-47.0); LYMPH # 1.1 10*3/uL (1.3-4.4); LYMPH % 10.7 % (27.0-41.0); MEAN CELL VOLUME 92.6 fl (81.0-99.0); MEAN CORPUSCULAR HGB 28.4 pg (27.0-31.0); MEAN CORPUSCULAR HGB CONC 30.7 g/dl (33.0-37.0); MEAN PLATELET VOLUME 9.4 fl (9.6-12.3); MONO # 0.6 10*3/uL (0.1-1.0); MONO % 6.2 % (3.0-9.0); NEUT # 8.2 10*3/uL (2.3-7.9); NEUT % 81.4 % (47.0-73.0); PLATELET COUNT AUTOMATED 251 10*3/uL (130-400); RED BLOOD COUNT 3.66 10*6/uL (4.10-5.10); RED CELL DISTRI WIDTH 15.5 % (0-14.5); WHITE BLOOD COUNT 10.1 10*3/uL (4.8-10.8)
[2020-07-04 13:35] LABS: CREATININE 1.76 mg/dL (0.55-1.02); POTASSIUM 4.9 mmol/L (3.5-5.1)
--- NOTE | 2020-07-04 14:20 | NUR ---
[facility] NOT IN NETWORK WITH PT INSURANCE. FAXED TO [facility].
--- NOTE | 2020-07-04 15:48 | NUR ---
Discharge instructions reviewed with patient/family. Patient receptive and verbalizes understanding. Follow-up care arranged. Written instructions given to patient/family. KEVEN LYNN
== END 2020-07-04 16:38 | disposition home health service (06) | DRG 183 ==
LOC: ED 17:09 → EDHOLD 20:59 → 5E 20:59
PROVIDERS: Nurse Practitioner Family; ADMIT Internal Medicine; ATTEND Internal Medicine
DX: S22.42XA Multiple fractures of ribs, left side, initial encounter for closed fracture (principal); J96.00 Acute respiratory failure, unspecified whether with hypoxia or hypercapnia; I16.9 Hypertensive crisis, unspecified; E44.1 Mild protein-calorie malnutrition; I13.0 Hypertensive heart and chronic kidney disease with heart failure and stage 1 through stage 4 chronic kidney disease, or unspecified chronic kidney disease; E11.22 Type 2 diabetes mellitus with diabetic chronic kidney disease; M06.9 Rheumatoid arthritis, unspecified; I25.10 Atherosclerotic heart disease of native coronary artery without angina pectoris; N18.30 Chronic kidney disease, stage 3 unspecified; I65.29 Occlusion and stenosis of unspecified carotid artery; I16.0 Hypertensive urgency; E87.8 Other disorders of electrolyte and fluid balance, not elsewhere classified; J44.9 Chronic obstructive pulmonary disease, unspecified; I50.9 Heart failure, unspecified; W18.30XA Fall on same level, unspecified, initial encounter; E11.65 Type 2 diabetes mellitus with hyperglycemia; Z79.4 Long term (current) use of insulin; Z91.041 Radiographic dye allergy status; Y93.89 Activity, other specified; Y92.89 Other specified places as the place of occurrence of the external cause; Y99.8 Other external cause status

== ENCOUNTER → 2020-07-31 | Outpatient (CLI) | payer MEDICARE ==
[~2020-07-31] MED LIST changes: +CRESTOR10 M1 PO; +GLIMEPIRIDE4 M1 PO; +LABETALOL HYDR200 MG PO; +LANTUS SOL100 UNIT/1 SC; +NATEGLINIDE120 MG PO; +PAROXETINE40 MG PO; +TORSEMIDE10 MG PO; +XARELTO15 M1 PO
[2020-07-31 17:30] LABS: CREATININE 1.29 mg/dL (0.55-1.02); POTASSIUM 4.3 mmol/L (3.5-5.1)
== END | disposition home or self-care (01) ==
LOC: LAB 16:13
PROVIDERS: ATTEND Student in an Organized Health Care Education/Training Program
DX: I11.0 Hypertensive heart disease with heart failure (principal); I50.32 Chronic diastolic (congestive) heart failure

== ENCOUNTER 2020-08-08 10:38 | Emergency (ER) | payer MEDICARE ==
[~2020-08-08] VITALS: Wt 112.0 kg
[~2020-08-08 10:38] MED LIST changes: -CRESTOR10 M1 PO; -LABETALOL HYDR200 MG PO; -LANTUS SOL100 UNIT/1 SC; -NATEGLINIDE120 MG PO; -PAROXETINE40 MG PO; -TORSEMIDE10 MG PO; -XARELTO15 M1 PO
[2020-08-08 11:18] LABS: BASO # 0.1 10*3/uL (0.0-0.1); BASO % 0.9 % (0.0-1.0); EOS # 0.1 10*3/uL (0.0-0.4); EOS % 2.2 % (1.0-4.0); HEMATOCRIT 33.5 % (37.0-47.0); LYMPH # 1.2 10*3/uL (1.3-4.4); LYMPH % 19.8 % (27.0-41.0); MEAN CELL VOLUME 96.3 fl (81.0-99.0); MEAN CORPUSCULAR HGB 28.4 pg (27.0-31.0); MEAN CORPUSCULAR HGB CONC 29.6 g/dl (33.0-37.0); MEAN PLATELET VOLUME 9.2 fl (9.6-12.3); MONO # 0.6 10*3/uL (0.1-1.0); MONO % 10.7 % (3.0-9.0); NEUT # 3.8 10*3/uL (2.3-7.9); NEUT % 66.1 % (47.0-73.0); PLATELET COUNT AUTOMATED 232 10*3/uL (130-400); RED BLOOD COUNT 3.48 10*6/uL (4.10-5.10); RED CELL DISTRI WIDTH 15.7 % (0-14.5); WHITE BLOOD COUNT 5.8 10*3/uL (4.8-10.8)
[2020-08-08 11:34] LABS: ALBUMIN 2.8 gm/dl (3.1-4.5); ALKALINE PHOSPHATASE 78 U/L (45-117); BUN 22 mg/dl (7-24); CHLORIDE 103 mmol/L (98-107); CREATININE 1.52 mg/dL (0.55-1.02); LIPASE 308 U/L (73-393); POTASSIUM 4.8 mmol/L (3.5-5.1); SGOT/AST 15 IU/L (3-35); SGPT/ALT 21 U/L (12-78); SODIUM 142 mmol/L (136-145); TOTAL PROTEIN 7.2 gm/dL (6.4-8.2)
[2020-08-08 11:36] LABS: TROPONIN I < 0.015 ng/ml (<0.045)
[2020-08-08 12:00] VITALS: BP 160/74
== END 2020-08-08 12:41 | disposition home or self-care (01) ==
LOC: ED 10:38
PROVIDERS: Physician Assistant
DX: R60.0 Localized edema (principal); E11.9 Type 2 diabetes mellitus without complications; M19.90 Unspecified osteoarthritis, unspecified site; F41.9 Anxiety disorder, unspecified; E78.00 Pure hypercholesterolemia, unspecified; I11.0 Hypertensive heart disease with heart failure; I50.9 Heart failure, unspecified; Z79.899 Other long term (current) drug therapy; Z79.4 Long term (current) use of insulin

== ENCOUNTER → 2020-08-22 | Outpatient (CLI) | payer MEDICARE ==
[~2020-08-22] MED LIST changes: +CRESTOR10 M1 PO; +LABETALOL HYDR200 MG PO; +LANTUS SOL100 UNIT/1 SC; +NATEGLINIDE120 MG PO; +PAROXETINE40 MG PO; +TORSEMIDE10 MG PO; +XARELTO15 M1 PO
[2020-08-22 17:26] LABS: CREATININE 1.54 mg/dL (0.55-1.02); POTASSIUM 4.1 mmol/L (3.5-5.1)
== END | disposition home or self-care (01) ==
LOC: US 08-11 11:30 → LAB 15:36
PROVIDERS: ATTEND Internal Medicine
DX: I73.9 Peripheral vascular disease, unspecified (principal); I10 Essential (primary) hypertension; I65.29 Occlusion and stenosis of unspecified carotid artery; I25.10 Atherosclerotic heart disease of native coronary artery without angina pectoris

== ENCOUNTER 2020-09-22 14:04 | Inpatient (IN) | payer MEDICARE ==
[~2020-09-22] VITALS: Ht 172.7 cm; Wt 109.9 kg
[~2020-09-22 14:04] MED LIST changes: -CRESTOR10 M1 PO; -LABETALOL HYDR200 MG PO; -LANTUS SOL100 UNIT/1 SC; -NATEGLINIDE120 MG PO; -PAROXETINE40 MG PO; -TORSEMIDE10 MG PO; -XARELTO15 M1 PO
[2020-09-22 14:25] LABS: BASO % 0.3 % (0.0-1.0); EOS % 0.2 % (1.0-4.0); HEMATOCRIT 34.2 % (37.0-47.0); LYMPH # 1.5 10*3/uL (1.3-4.4); LYMPH % 12.2 % (27.0-41.0); MEAN CELL VOLUME 90.2 fl (81.0-99.0); MEAN CORPUSCULAR HGB 27.7 pg (27.0-31.0); MEAN CORPUSCULAR HGB CONC 30.7 g/dl (33.0-37.0); MEAN PLATELET VOLUME 9.5 fl (9.6-12.3); MONO # 0.2 10*3/uL (0.1-1.0); MONO % 1.8 % (3.0-9.0); NEUT # 10.1 10*3/uL (2.3-7.9); NEUT % 84.7 % (47.0-73.0); PLATELET COUNT AUTOMATED 272 10*3/uL (130-400); RED BLOOD COUNT 3.79 10*6/uL (4.10-5.10); RED CELL DISTRI WIDTH 15.7 % (0-14.5); WHITE BLOOD COUNT 11.9 10*3/uL (4.8-10.8)
[2020-09-22 14:36] LABS: ACT PARTIAL THROMBO TIME 33.3 SECONDS (20.0-32.1); INTERNATIONAL NORM RATIO 1.3 (2.0-3.5)
[2020-09-22 14:45] VITALS: BP 186/98
[2020-09-22 14:45] LABS: ALBUMIN 3.2 gm/dl (3.1-4.5); CREATININE 1.55 mg/dL (0.55-1.02); POTASSIUM 4.1 mmol/L (3.5-5.1); TOTAL PROTEIN 8.7 gm/dL (6.4-8.2)
[2020-09-22 14:46] LABS: TROPONIN I 0.034 ng/ml (<0.045)
[2020-09-22 16:27] VITALS: BP 190/90
[2020-09-22 17:11] VITALS: BP 140/80
[2020-09-22 18:00] VITALS: BP 183/82
[2020-09-22] MEDS ORDERED: GLIMEPIRIDE4 M1 PO (18:47)
[2020-09-22] MEDS ORDERED: LABETALOL HYDR200 MG PO (18:48)
[2020-09-22] MEDS ORDERED: CRESTOR10 M1 PO (18:49)
[2020-09-22] MEDS ORDERED: NATEGLINIDE120 MG PO (18:50)
[2020-09-22] MEDS ORDERED: PAROXETINE40 MG PO (18:51)
[2020-09-22] MEDS ORDERED: TORSEMIDE10 MG PO (18:51)
[2020-09-22] MEDS ORDERED: XARELTO15 M1 PO (18:53)
[2020-09-22 20:00] VITALS: BP 198/98
[2020-09-22] MEDS ORDERED: LANTUS SOL100 UNIT/1 SC (20:38)
[2020-09-23] VITALS: BP 140/77
[2020-09-23 06:50] LABS: BASO % 0.3 % (0.0-1.0); EOS # 0.2 10*3/uL (0.0-0.4); EOS % 1.2 % (1.0-4.0); HEMATOCRIT 31.9 % (37.0-47.0); LYMPH # 2.5 10*3/uL (1.3-4.4); LYMPH % 19.8 % (27.0-41.0); MEAN CELL VOLUME 91.9 fl (81.0-99.0); MEAN CORPUSCULAR HGB 27.4 pg (27.0-31.0); MEAN CORPUSCULAR HGB CONC 29.8 g/dl (33.0-37.0); MEAN PLATELET VOLUME 9.8 fl (9.6-12.3); MONO # 0.8 10*3/uL (0.1-1.0); MONO % 5.9 % (3.0-9.0); NEUT # 9.2 10*3/uL (2.3-7.9); NEUT % 71.9 % (47.0-73.0); PLATELET COUNT AUTOMATED 247 10*3/uL (130-400); RED BLOOD COUNT 3.47 10*6/uL (4.10-5.10); RED CELL DISTRI WIDTH 15.6 % (0-14.5); WHITE BLOOD COUNT 12.8 10*3/uL (4.8-10.8)
[2020-09-23 07:21] LABS: TRIGLYCERIDES 150 mg/dl (<150)
[2020-09-23 07:24] LABS: POTASSIUM 3.9 mmol/L (3.5-5.1)
[2020-09-23 07:26] LABS: LIPASE 1649 U/L (73-393)
[2020-09-23 07:27] LABS: CREATININE 1.44 mg/dL (0.55-1.02)
[2020-09-23 08:00] VITALS: BP 153/67
== END 2020-09-23 11:15 | disposition short-term general hospital (02) | DRG 280 ==
LOC: ED 14:04 → EDHOLD 16:38 → 5E 16:38 → EDHOLD 17:06 → 5E 17:30
PROVIDERS: Emergency Medicine; ADMIT Internal Medicine; ATTEND Internal Medicine
DX: I21.4 Non-ST elevation (NSTEMI) myocardial infarction (principal); K85.90 Acute pancreatitis without necrosis or infection, unspecified; I50.23 Acute on chronic systolic (congestive) heart failure; I13.0 Hypertensive heart and chronic kidney disease with heart failure and stage 1 through stage 4 chronic kidney disease, or unspecified chronic kidney disease; I43 Cardiomyopathy in diseases classified elsewhere; Z68.41 Body mass index [BMI] 40.0-44.9, adult; N18.32 Chronic kidney disease, stage 3b; E66.01 Morbid (severe) obesity due to excess calories; I48.0 Paroxysmal atrial fibrillation; J44.9 Chronic obstructive pulmonary disease, unspecified; E11.22 Type 2 diabetes mellitus with diabetic chronic kidney disease; I25.10 Atherosclerotic heart disease of native coronary artery without angina pectoris; M06.9 Rheumatoid arthritis, unspecified; G47.33 Obstructive sleep apnea (adult) (pediatric); E78.5 Hyperlipidemia, unspecified; Z91.041 Radiographic dye allergy status; Z90.710 Acquired absence of both cervix and uterus; Z99.81 Dependence on supplemental oxygen; Z95.5 Presence of coronary angioplasty implant and graft; Z82.49 Family history of ischemic heart disease and other diseases of the circulatory system; Z79.82 Long term (current) use of aspirin; Z79.899 Other long term (current) drug therapy

== ENCOUNTER 2020-11-11 11:38 | Observation (INO) | payer MEDICARE ==
[2020-11-11] VITALS (7 sets, daily range): BP systolic 114–148; BP diastolic 55–70
[~2020-11-11] VITALS: Ht 167.6 cm; Wt 109.8 kg
[~2020-11-11 11:38] MED LIST changes: +CRESTOR10 M1 PO; +LABETALOL HYDR200 MG PO; +LANTUS SOL100 UNIT/1 SC; +NATEGLINIDE120 MG PO; +PAROXETINE40 MG PO; +TORSEMIDE10 MG PO; +XARELTO15 M1 PO
[2020-11-11 13:37] LABS: BASO % 0.5 % (0.0-1.0); EOS # 0.2 10*3/uL (0.0-0.4); EOS % 2.5 % (1.0-4.0); HEMATOCRIT 23.5 % (37.0-47.0); LYMPH # 1.6 10*3/uL (1.3-4.4); LYMPH % 19.4 % (27.0-41.0); MEAN CELL VOLUME 91.4 fl (81.0-99.0); MEAN CORPUSCULAR HGB 28.8 pg (27.0-31.0); MEAN CORPUSCULAR HGB CONC 31.5 g/dl (33.0-37.0); MEAN PLATELET VOLUME 9.1 fl (9.6-12.3); MONO # 0.3 10*3/uL (0.1-1.0); MONO % 3.6 % (3.0-9.0); NEUT # 5.9 10*3/uL (2.3-7.9); NEUT % 73.6 % (47.0-73.0); PLATELET COUNT AUTOMATED 211 10*3/uL (130-400); RED BLOOD COUNT 2.57 10*6/uL (4.10-5.10); RED CELL DISTRI WIDTH 15.9 % (0-14.5); WHITE BLOOD COUNT 8.1 10*3/uL (4.8-10.8)
[2020-11-11 13:47] LABS: ACT PARTIAL THROMBO TIME 31.3 SECONDS (20.0-32.1); INTERNATIONAL NORM RATIO 1.3 (2.0-3.5)
[2020-11-11 13:52] LABS: ALKALINE PHOSPHATASE 91 U/L (45-117); BUN 34 mg/dl (7-24); CHLORIDE 105 mmol/L (98-107); CREATININE 1.42 mg/dL (0.55-1.02); LIPASE 958 U/L (73-393); POTASSIUM 4.4 mmol/L (3.5-5.1); SGOT/AST 14 IU/L (3-35); SGPT/ALT 21 U/L (12-78); SODIUM 139 mmol/L (136-145); TOTAL PROTEIN 7.2 gm/dL (6.4-8.2)
[2020-11-11 13:53] LABS: TROPONIN I < 0.015 ng/ml (<0.045)
[2020-11-11 14:19] LABS: BILIRUBIN Negative (Negative); BLOOD Negative (Negative); CLARITY Clear (Clear); COLOR Yellow (Yellow); GLUCOSE Negative (Negative); KETONE Negative (Negative); LEUKO ESTERASE Negative (Negative); NITRITE Negative (Negative); UROBILINOGEN 0.2 E.U./dl (0.0-1.0)
[2020-11-11 14:29] LABS: BACTERIA 1+
[2020-11-12] VITALS: BP 151/67
[2020-11-12 08:00] VITALS: BP 146/68
[2020-11-12 12:00] VITALS: BP 135/86
[2020-11-12 16:00] VITALS: BP 136/62
[2020-11-12 20:00] VITALS: BP 155/65
[2020-11-13] VITALS (11 sets, daily range): BP systolic 140–170; BP diastolic 51–90
[2020-11-13 08:48] LABS: BASO % 0.4 % (0.0-1.0); EOS # 0.2 10*3/uL (0.0-0.4); LYMPH # 1.4 10*3/uL (1.3-4.4); LYMPH % 20.3 % (27.0-41.0); MEAN CELL VOLUME 92.2 fl (81.0-99.0); MEAN CORPUSCULAR HGB 28.4 pg (27.0-31.0); MEAN CORPUSCULAR HGB CONC 30.8 g/dl (33.0-37.0); MEAN PLATELET VOLUME 8.8 fl (9.6-12.3); MONO # 0.5 10*3/uL (0.1-1.0); MONO % 6.7 % (3.0-9.0); NEUT # 4.8 10*3/uL (2.3-7.9); NEUT % 68.9 % (47.0-73.0); PLATELET COUNT AUTOMATED 195 10*3/uL (130-400); RED BLOOD COUNT 2.82 10*6/uL (4.10-5.10); RED CELL DISTRI WIDTH 15.5 % (0-14.5)
[2020-11-14] VITALS (11 sets, daily range): BP systolic 114–164; BP diastolic 6–79
[2020-11-14 06:05] LABS: BASO % 0.6 % (0.0-1.0); EOS # 0.3 10*3/uL (0.0-0.4); EOS % 4.6 % (1.0-4.0); HEMATOCRIT 28.2 % (37.0-47.0); LYMPH # 1.6 10*3/uL (1.3-4.4); LYMPH % 23.4 % (27.0-41.0); MEAN CELL VOLUME 93.1 fl (81.0-99.0); MEAN CORPUSCULAR HGB 28.4 pg (27.0-31.0); MEAN CORPUSCULAR HGB CONC 30.5 g/dl (33.0-37.0); MEAN PLATELET VOLUME 9.2 fl (9.6-12.3); MONO # 0.6 10*3/uL (0.1-1.0); MONO % 8.4 % (3.0-9.0); NEUT # 4.2 10*3/uL (2.3-7.9); NEUT % 62.4 % (47.0-73.0); PLATELET COUNT AUTOMATED 190 10*3/uL (130-400); RED BLOOD COUNT 3.03 10*6/uL (4.10-5.10); RED CELL DISTRI WIDTH 15.6 % (0-14.5); WHITE BLOOD COUNT 6.8 10*3/uL (4.8-10.8)
[2020-11-14 06:25] LABS: CREATININE 1.27 mg/dL (0.55-1.02); POTASSIUM 4.9 mmol/L (3.5-5.1)
[2020-11-15] VITALS: BP 150/64
[2020-11-15 05:55] VITALS: BP 169/74
[2020-11-15] MEDS ORDERED: Imdur SA60 MG PO (07:34)
[2020-11-15] MEDS ORDERED: TORSEMIDE10 MG PO (07:34)
[2020-11-15] MEDS ORDERED: METOPROLOL SUCC50 M1 PO (07:34)
[2020-11-15] MEDS ORDERED: NOVOLOG100 UNIT/1 SQ (07:38)
[2020-11-15 08:00] VITALS: BP 157/77
== END 2020-11-15 10:55 | disposition home or self-care (01) ==
LOC: ED 11:38 → EDHOLD 19:08 → 4E 19:08
PROVIDERS: Physician Assistant; ADMIT Internal Medicine; ATTEND Internal Medicine
DX: R07.89 Other chest pain (principal); I48.21 Permanent atrial fibrillation; J96.10 Chronic respiratory failure, unspecified whether with hypoxia or hypercapnia; I25.10 Atherosclerotic heart disease of native coronary artery without angina pectoris; J44.9 Chronic obstructive pulmonary disease, unspecified; M06.9 Rheumatoid arthritis, unspecified; E66.9 Obesity, unspecified; R51.9 Headache, unspecified; R42 Dizziness and giddiness; F32.9 Major depressive disorder, single episode, unspecified; D63.1 Anemia in chronic kidney disease; R53.83 Other fatigue; E11.22 Type 2 diabetes mellitus with diabetic chronic kidney disease; I12.9 Hypertensive chronic kidney disease with stage 1 through stage 4 chronic kidney disease, or unspecified chronic kidney disease; N18.9 Chronic kidney disease, unspecified; Z20.822 Contact with and (suspected) exposure to COVID-19; Z95.5 Presence of coronary angioplasty implant and graft; Z90.710 Acquired absence of both cervix and uterus; Z90.49 Acquired absence of other specified parts of digestive tract; Z98.890 Other specified postprocedural states

== ENCOUNTER 2020-11-22 13:00 | Inpatient (IN) | payer MEDICARE ==
[~2020-11-22] VITALS: Ht 167.6 cm; Wt 110.5 kg
[2020-11-22] VITALS (17 sets, daily range): BP systolic 94–149; BP diastolic 36–73
[~2020-11-22 13:00] MED LIST changes: +Imdur SA60 MG PO; +NOVOLOG100 UNIT/1 SQ
[2020-11-22 14:04] LABS: BASO % 0.3 % (0.0-1.0); EOS # 0.3 10*3/uL (0.0-0.4); EOS % 2.7 % (1.0-4.0); HEMATOCRIT 23.9 % (37.0-47.0); LYMPH # 1.5 10*3/uL (1.3-4.4); MEAN CELL VOLUME 94.5 fl (81.0-99.0); MEAN CORPUSCULAR HGB 28.9 pg (27.0-31.0); MEAN CORPUSCULAR HGB CONC 30.5 g/dl (33.0-37.0); MEAN PLATELET VOLUME 9.2 fl (9.6-12.3); MONO # 0.7 10*3/uL (0.1-1.0); MONO % 7.3 % (3.0-9.0); NEUT # 7.1 10*3/uL (2.3-7.9); NEUT % 73.3 % (47.0-73.0); PLATELET COUNT AUTOMATED 256 10*3/uL (130-400); RED BLOOD COUNT 2.53 10*6/uL (4.10-5.10); RED CELL DISTRI WIDTH 15.7 % (0-14.5); WHITE BLOOD COUNT 9.7 10*3/uL (4.8-10.8)
[2020-11-22 14:14] LABS: ACT PARTIAL THROMBO TIME 28.8 SECONDS (20.0-32.1); INTERNATIONAL NORM RATIO 1.2 (2.0-3.5)
[2020-11-22 14:20] LABS: CREATININE 1.55 mg/dL (0.55-1.02); POTASSIUM 5.5 mmol/L (3.5-5.1); TOTAL PROTEIN 6.8 gm/dL (6.4-8.2)
[2020-11-22 15:22] LABS: HEMATOCRIT 22.3 % (37.0-47.0)
[2020-11-22] MEDS ORDERED: Imdur SA60 MG PO (16:23)
[2020-11-22] MEDS ORDERED: XARELTO10 MG PO (16:29)
[2020-11-22] MEDS ORDERED: TORSEMIDE20 MG PO (16:29)
[2020-11-22] MEDS ORDERED: PLAVIX75 M1 PO (16:30)
[2020-11-22] MEDS ORDERED: NORVASC10 MG PO (16:31)
[2020-11-23] VITALS: BP 130/50
[2020-11-23 01:42] LABS: BASO % 0.4 % (0.0-1.0); EOS # 0.3 10*3/uL (0.0-0.4); EOS % 3.6 % (1.0-4.0); HEMATOCRIT 26.2 % (37.0-47.0); LYMPH # 1.5 10*3/uL (1.3-4.4); LYMPH % 20.3 % (27.0-41.0); MEAN CELL VOLUME 93.2 fl (81.0-99.0); MEAN CORPUSCULAR HGB 29.5 pg (27.0-31.0); MEAN CORPUSCULAR HGB CONC 31.7 g/dl (33.0-37.0); MEAN PLATELET VOLUME 9.5 fl (9.6-12.3); MONO # 0.4 10*3/uL (0.1-1.0); MONO % 5.6 % (3.0-9.0); NEUT # 5.2 10*3/uL (2.3-7.9); NEUT % 69.8 % (47.0-73.0); PLATELET COUNT AUTOMATED 201 10*3/uL (130-400); RED BLOOD COUNT 2.81 10*6/uL (4.10-5.10); RED CELL DISTRI WIDTH 15.1 % (0-14.5); WHITE BLOOD COUNT 7.5 10*3/uL (4.8-10.8)
[2020-11-23 04:00] VITALS: BP 142/64
[2020-11-23 05:12] LABS: BASO % 0.3 % (0.0-1.0); EOS # 0.3 10*3/uL (0.0-0.4); EOS % 3.8 % (1.0-4.0); HEMATOCRIT 27.1 % (37.0-47.0); LYMPH # 1.3 10*3/uL (1.3-4.4); LYMPH % 18.4 % (27.0-41.0); MEAN CELL VOLUME 93.1 fl (81.0-99.0); MEAN CORPUSCULAR HGB 29.9 pg (27.0-31.0); MEAN CORPUSCULAR HGB CONC 32.1 g/dl (33.0-37.0); MEAN PLATELET VOLUME 9.8 fl (9.6-12.3); MONO # 0.4 10*3/uL (0.1-1.0); MONO % 6.2 % (3.0-9.0); NEUT % 70.9 % (47.0-73.0); PLATELET COUNT AUTOMATED 198 10*3/uL (130-400); RED BLOOD COUNT 2.91 10*6/uL (4.10-5.10); RED CELL DISTRI WIDTH 15.3 % (0-14.5); WHITE BLOOD COUNT 7.1 10*3/uL (4.8-10.8)
[2020-11-23 05:43] LABS: CREATININE 1.41 mg/dL (0.55-1.02); POTASSIUM 5.6 mmol/L (3.5-5.1)
[2020-11-23 08:00] VITALS: BP 129/52
[2020-11-23 12:00] VITALS: BP 138/64
[2020-11-23 16:00] VITALS: BP 155/77
[2020-11-23 20:00] VITALS: BP 141/67
[2020-11-24] VITALS (10 sets, daily range): BP systolic 119–153; BP diastolic 33–69
[2020-11-24 06:20] LABS: BASO % 0.4 % (0.0-1.0); EOS # 0.3 10*3/uL (0.0-0.4); EOS % 4.1 % (1.0-4.0); HEMATOCRIT 23.5 % (37.0-47.0); LYMPH # 1.4 10*3/uL (1.3-4.4); LYMPH % 19.1 % (27.0-41.0); MEAN CELL VOLUME 94.4 fl (81.0-99.0); MEAN CORPUSCULAR HGB 29.7 pg (27.0-31.0); MEAN CORPUSCULAR HGB CONC 31.5 g/dl (33.0-37.0); MEAN PLATELET VOLUME 9.8 fl (9.6-12.3); MONO # 0.2 10*3/uL (0.1-1.0); NEUT # 5.3 10*3/uL (2.3-7.9); PLATELET COUNT AUTOMATED 193 10*3/uL (130-400); RED BLOOD COUNT 2.49 10*6/uL (4.10-5.10); WHITE BLOOD COUNT 7.2 10*3/uL (4.8-10.8)
[2020-11-24 06:44] LABS: CREATININE 1.21 mg/dL (0.55-1.02)
[2020-11-25] VITALS (21 sets, daily range): BP systolic 128–178; BP diastolic 35–90
[2020-11-25 06:11] LABS: HEMATOCRIT 21.7 % (37.0-47.0); MEAN CELL VOLUME 94.3 fl (81.0-99.0); MEAN CORPUSCULAR HGB 29.6 pg (27.0-31.0); MEAN CORPUSCULAR HGB CONC 31.3 g/dl (33.0-37.0); MEAN PLATELET VOLUME 9.5 fl (9.6-12.3); PLATELET COUNT AUTOMATED 202 10*3/uL (130-400); RED CELL DISTRI WIDTH 14.9 % (0-14.5)
[2020-11-25 06:16] LABS: CREATININE 1.16 mg/dL (0.55-1.02); POTASSIUM 4.4 mmol/L (3.5-5.1)
[2020-11-25 06:45] LABS: BASOPHILS 1 % (0-1); PLATELET SUFFICIENCY NORMAL (NORMAL); TOTAL CELLS COUNTED 100 #CELLS
[2020-11-25 19:13] LABS: HEMATOCRIT 27.1 % (37.0-47.0)
[2020-11-26] VITALS: BP 134/55
[2020-11-26 04:00] VITALS: BP 140/56
[2020-11-26 06:15] LABS: BASO % 0.3 % (0.0-1.0); EOS # 0.3 10*3/uL (0.0-0.4); EOS % 2.7 % (1.0-4.0); HEMATOCRIT 27.1 % (37.0-47.0); LYMPH # 1.6 10*3/uL (1.3-4.4); LYMPH % 17.3 % (27.0-41.0); MEAN CELL VOLUME 93.4 fl (81.0-99.0); MEAN CORPUSCULAR HGB CONC 32.1 g/dl (33.0-37.0); MEAN PLATELET VOLUME 9.5 fl (9.6-12.3); MONO # 0.5 10*3/uL (0.1-1.0); MONO % 5.1 % (3.0-9.0); NEUT # 6.7 10*3/uL (2.3-7.9); NEUT % 73.6 % (47.0-73.0); PLATELET COUNT AUTOMATED 216 10*3/uL (130-400); RED CELL DISTRI WIDTH 14.6 % (0-14.5); WHITE BLOOD COUNT 9.1 10*3/uL (4.8-10.8)
[2020-11-26 06:26] LABS: CREATININE 1.17 mg/dL (0.55-1.02); POTASSIUM 4.7 mmol/L (3.5-5.1)
[2020-11-26 08:00] VITALS: BP 176/82
[2020-11-26 12:00] VITALS: BP 121/54
[2020-11-26 16:00] VITALS: BP 136/66
[2020-11-26 20:00] VITALS: BP 136/60
[2020-11-27] VITALS: BP 154/68
[2020-11-27 04:00] VITALS: BP 142/70
[2020-11-27 06:17] LABS: BASO % 0.5 % (0.0-1.0); EOS # 0.2 10*3/uL (0.0-0.4); EOS % 3.3 % (1.0-4.0); HEMATOCRIT 27.4 % (37.0-47.0); LYMPH # 1.6 10*3/uL (1.3-4.4); LYMPH % 21.1 % (27.0-41.0); MEAN CELL VOLUME 94.8 fl (81.0-99.0); MEAN CORPUSCULAR HGB 29.8 pg (27.0-31.0); MEAN CORPUSCULAR HGB CONC 31.4 g/dl (33.0-37.0); MEAN PLATELET VOLUME 9.3 fl (9.6-12.3); MONO # 0.6 10*3/uL (0.1-1.0); MONO % 7.7 % (3.0-9.0); NEUT # 4.8 10*3/uL (2.3-7.9); NEUT % 65.4 % (47.0-73.0); PLATELET COUNT AUTOMATED 204 10*3/uL (130-400); RED BLOOD COUNT 2.89 10*6/uL (4.10-5.10); RED CELL DISTRI WIDTH 14.6 % (0-14.5); WHITE BLOOD COUNT 7.4 10*3/uL (4.8-10.8)
[2020-11-27 06:26] LABS: BUN 17 mg/dl (7-24); CHLORIDE 107 mmol/L (98-107); CREATININE 1.06 mg/dL (0.55-1.02); POTASSIUM 4.6 mmol/L (3.5-5.1); SODIUM 141 mmol/L (136-145)
[2020-11-27 08:00] VITALS: BP 150/72
[2020-11-27] MEDS ORDERED: LISINOPRIL10 M1 PO (09:39)
[2020-11-27] MEDS ORDERED: METOPROLOL SUCC25 M2 PO (09:54)
[2020-11-27 12:00] VITALS: BP 147/69
== END 2020-11-27 15:22 | disposition home health service (06) | DRG 813 ==
LOC: ED 13:00 → EDHOLD 15:33 → ICCU 15:33
PROVIDERS: Emergency Medicine; ADMIT Internal Medicine; ATTEND Internal Medicine
PROC: 30233N1 Transfusion of Nonautologous Red Blood Cells into Peripheral Vein, Percutaneous Approach (ICD-10-PCS; principal; 2020-11-22)
PROC: 0DB68ZX Excision of Stomach, Via Natural or Artificial Opening Endoscopic, Diagnostic (ICD-10-PCS; 2020-11-24)
PROC: 0DJD8ZZ Inspection of Lower Intestinal Tract, Via Natural or Artificial Opening Endoscopic (ICD-10-PCS; 2020-11-24)
DX: D68.32 Hemorrhagic disorder due to extrinsic circulating anticoagulants (principal); K29.71 Gastritis, unspecified, with bleeding; K57.31 Diverticulosis of large intestine without perforation or abscess with bleeding; N17.0 Acute kidney failure with tubular necrosis; I48.21 Permanent atrial fibrillation; D62 Acute posthemorrhagic anemia; I50.32 Chronic diastolic (congestive) heart failure; I13.0 Hypertensive heart and chronic kidney disease with heart failure and stage 1 through stage 4 chronic kidney disease, or unspecified chronic kidney disease; E87.5 Hyperkalemia; K52.9 Noninfective gastroenteritis and colitis, unspecified; T45.515A Adverse effect of anticoagulants, initial encounter; I25.10 Atherosclerotic heart disease of native coronary artery without angina pectoris; M06.9 Rheumatoid arthritis, unspecified; I95.9 Hypotension, unspecified; I48.0 Paroxysmal atrial fibrillation; E66.9 Obesity, unspecified; J43.2 Centrilobular emphysema; N18.32 Chronic kidney disease, stage 3b; Z79.01 Long term (current) use of anticoagulants; I25.2 Old myocardial infarction; Z90.710 Acquired absence of both cervix and uterus; Z79.4 Long term (current) use of insulin; Z95.5 Presence of coronary angioplasty implant and graft; Z79.899 Other long term (current) drug therapy; Y92.89 Other specified places as the place of occurrence of the external cause; Z68.39 Body mass index [BMI] 39.0-39.9, adult

== ENCOUNTER 2021-01-18 23:13 | Inpatient (IN) | payer MEDICARE ==
[~2021-01-18] VITALS: Ht 165.1 cm; Wt 100.4 kg
[~2021-01-18 23:13] MED LIST changes: +LISINOPRIL10 M1 PO; +METOPROLOL SUCC25 M2 PO; +NORVASC10 MG PO; +PLAVIX75 M1 PO; +TORSEMIDE20 MG PO; +XARELTO10 MG PO
[2021-01-18 23:18] VITALS: BP 111/59
[2021-01-19 01:06] LABS: BASO % 0.2 % (0.0-1.0); HEMATOCRIT 26.3 % (37.0-47.0); LYMPH # 0.6 10*3/uL (1.3-4.4); LYMPH % 11.9 % (27.0-41.0); MEAN CELL VOLUME 91.3 fl (81.0-99.0); MEAN CORPUSCULAR HGB 30.6 pg (27.0-31.0); MEAN CORPUSCULAR HGB CONC 33.5 g/dl (33.0-37.0); MEAN PLATELET VOLUME 10.5 fl (9.6-12.3); MONO # 0.9 10*3/uL (0.1-1.0); MONO % 18.5 % (3.0-9.0); NEUT # 3.4 10*3/uL (2.3-7.9); NEUT % 67.8 % (47.0-73.0); PLATELET COUNT AUTOMATED 125 10*3/uL (130-400); RED BLOOD COUNT 2.88 10*6/uL (4.10-5.10); RED CELL DISTRI WIDTH 17.7 % (0-14.5)
[2021-01-19 01:23] LABS: ALBUMIN 3.1 gm/dl (3.1-4.5); ALKALINE PHOSPHATASE 71 U/L (45-117); BUN 71 mg/dl (7-24); CHLORIDE 98 mmol/L (98-107); CREATININE 2.78 mg/dL (0.55-1.02); POTASSIUM 4.5 mmol/L (3.5-5.1); SGOT/AST 26 IU/L (3-35); SGPT/ALT 19 U/L (12-78); SODIUM 133 mmol/L (136-145); TOTAL PROTEIN 7.5 gm/dL (6.4-8.2)
[2021-01-19 01:24] LABS: TROPONIN I < 0.015 ng/ml (<0.045)
[2021-01-19 03:44] LABS: BILIRUBIN Negative (Negative); BLOOD Trace-Lysed (Negative); CLARITY Cloudy (Clear); COLOR Yellow (Yellow); GLUCOSE Negative (Negative); KETONE Trace (Negative); LEUKO ESTERASE Negative (Negative); NITRITE Negative (Negative); PH 5.5 (4.5-8.0); SPECIFIC GRAVITY 1.015 (1.001-1.030)
[2021-01-19 04:05] LABS: WBC 0-2 wbc/hpf (0-5)
[2021-01-19 06:21] LABS: POTASSIUM 4.3 mmol/L (3.5-5.1)
[2021-01-19 06:58] LABS: CREATININE 2.68 mg/dL (0.55-1.02)
[2021-01-19 07:01] LABS: HEMATOCRIT 26.2 % (37.0-47.0); MEAN CELL VOLUME 92.9 fl (81.0-99.0); MEAN CORPUSCULAR HGB 30.5 pg (27.0-31.0); MEAN CORPUSCULAR HGB CONC 32.8 g/dl (33.0-37.0); MEAN PLATELET VOLUME 10.9 fl (9.6-12.3); PLATELET COUNT AUTOMATED 131 10*3/uL (130-400); RED BLOOD COUNT 2.82 10*6/uL (4.10-5.10); RED CELL DISTRI WIDTH 17.5 % (0-14.5)
[2021-01-19 07:51] LABS: PLATELET SUFFICIENCY NORMAL (NORMAL); POLYCHROMASIA SLIGHT; TOTAL CELLS COUNTED 100 #CELLS
[2021-01-19 07:54] VITALS: BP 116/67
[2021-01-19 09:45] VITALS: BP 130/70
[2021-01-19 14:44] VITALS: BP 123/55
[2021-01-19 20:00] VITALS: BP 144/90
[2021-01-19 20:20] VITALS: BP 144/90
[2021-01-20] VITALS: BP 102/52; BP 95/51
[2021-01-20 07:19] LABS: HEMATOCRIT 25.7 % (37.0-47.0); MEAN CELL VOLUME 94.8 fl (81.0-99.0); MEAN CORPUSCULAR HGB 29.9 pg (27.0-31.0); MEAN CORPUSCULAR HGB CONC 31.5 g/dl (33.0-37.0); MEAN PLATELET VOLUME 9.9 fl (9.6-12.3); PLATELET COUNT AUTOMATED 147 10*3/uL (130-400); RED BLOOD COUNT 2.71 10*6/uL (4.10-5.10); RED CELL DISTRI WIDTH 18.4 % (0-14.5); WHITE BLOOD COUNT 4.4 10*3/uL (4.8-10.8)
[2021-01-20 07:46] LABS: CREATININE 2.06 mg/dL (0.55-1.02); POTASSIUM 4.5 mmol/L (3.5-5.1)
[2021-01-20 08:00] VITALS: BP 112/56
[2021-01-20 08:44] LABS: POLYCHROMASIA SLIGHT; TOTAL CELLS COUNTED 100 #CELLS
[2021-01-20 08:45] LABS: OVALOCYTES FEW; PLATELET SUFFICIENCY NORMAL (NORMAL)
[2021-01-20 12:00] VITALS: BP 112/60
[2021-01-20 16:00] VITALS: BP 104/62
[2021-01-20 20:00] VITALS: BP 90/43
[2021-01-21] VITALS: BP 98/47
[2021-01-21 06:41] LABS: HEMATOCRIT 24.1 % (37.0-47.0); MEAN CELL VOLUME 94.5 fl (81.0-99.0); MEAN CORPUSCULAR HGB 30.2 pg (27.0-31.0); MEAN PLATELET VOLUME 10.3 fl (9.6-12.3); PLATELET COUNT AUTOMATED 189 10*3/uL (130-400); RED BLOOD COUNT 2.55 10*6/uL (4.10-5.10); RED CELL DISTRI WIDTH 18.3 % (0-14.5); WHITE BLOOD COUNT 3.1 10*3/uL (4.8-10.8)
[2021-01-21 06:47] LABS: CREATININE 2.06 mg/dL (0.55-1.02); POTASSIUM 4.9 mmol/L (3.5-5.1)
[2021-01-21 07:27] LABS: ATYPICAL LYMPHS 2 % (0-0); TOTAL CELLS COUNTED 100 #CELLS
[2021-01-21 07:28] LABS: OVALOCYTES FEW; PLATELET SUFFICIENCY NORMAL (NORMAL); POLYCHROMASIA SLIGHT; ROULEAUX SLIGHT
[2021-01-21 08:00] VITALS: BP 97/43
[2021-01-21 12:00] VITALS: BP 96/48
[2021-01-21 16:00] VITALS: BP 88/47; BP 92/50
[2021-01-21 20:00] VITALS: BP 94/54
[2021-01-22] VITALS: BP 107/53
[2021-01-22 06:54] LABS: CREATININE 1.68 mg/dL (0.55-1.02); POTASSIUM 5.6 mmol/L (3.5-5.1)
[2021-01-22 08:00] VITALS: BP 108/52
[2021-01-22 16:00] VITALS: BP 101/56
[2021-01-22 20:00] VITALS: BP 129/53
[2021-01-23] VITALS: BP 152/71
[2021-01-23 06:27] LABS: CREATININE 1.41 mg/dL (0.55-1.02); POTASSIUM 5.5 mmol/L (3.5-5.1)
[2021-01-23 07:09] LABS: BASO % 0.4 % (0.0-1.0); EOS # 0.2 10*3/uL (0.0-0.4); EOS % 3.5 % (1.0-4.0); HEMATOCRIT 23.9 % (37.0-47.0); LYMPH # 0.8 10*3/uL (1.3-4.4); LYMPH % 15.1 % (27.0-41.0); MEAN CORPUSCULAR HGB 30.1 pg (27.0-31.0); MEAN CORPUSCULAR HGB CONC 31.4 g/dl (33.0-37.0); MEAN PLATELET VOLUME 10.1 fl (9.6-12.3); MONO # 0.8 10*3/uL (0.1-1.0); MONO % 14.9 % (3.0-9.0); NEUT # 3.5 10*3/uL (2.3-7.9); NEUT % 65.4 % (47.0-73.0); RED BLOOD COUNT 2.49 10*6/uL (4.10-5.10); RED CELL DISTRI WIDTH 17.4 % (0-14.5); WHITE BLOOD COUNT 5.4 10*3/uL (4.8-10.8)
[2021-01-23 07:24] LABS: PLATELET COUNT AUTOMATED 295 10*3/uL (130-400)
[2021-01-23 08:00] VITALS: BP 112/58
[2021-01-23 12:00] VITALS: BP 110/48
[2021-01-23] MEDS ORDERED: GLIMEPIRIDE4 M1 PO (12:38)
[2021-01-23 16:00] VITALS: BP 131/55
[2021-01-23 21:05] VITALS: BP 153/61
[2021-01-24] VITALS: BP 151/70
[2021-01-24 08:00] VITALS: BP 151/82
[2021-01-24 08:39] LABS: BASO % 0.3 % (0.0-1.0); EOS # 0.2 10*3/uL (0.0-0.4); EOS % 4.3 % (1.0-4.0); HEMATOCRIT 25.3 % (37.0-47.0); LYMPH # 0.8 10*3/uL (1.3-4.4); LYMPH % 20.9 % (27.0-41.0); MEAN CELL VOLUME 94.4 fl (81.0-99.0); MEAN CORPUSCULAR HGB 30.2 pg (27.0-31.0); MEAN PLATELET VOLUME 9.7 fl (9.6-12.3); MONO # 0.4 10*3/uL (0.1-1.0); MONO % 10.8 % (3.0-9.0); NEUT # 2.5 10*3/uL (2.3-7.9); NEUT % 63.2 % (47.0-73.0); PLATELET COUNT AUTOMATED 325 10*3/uL (130-400); RED BLOOD COUNT 2.68 10*6/uL (4.10-5.10)
[2021-01-24 08:56] LABS: ALBUMIN 2.7 gm/dl (3.1-4.5); CREATININE 1.29 mg/dL (0.55-1.02); POTASSIUM 5.2 mmol/L (3.5-5.1); TOTAL PROTEIN 6.9 gm/dL (6.4-8.2)
[2021-01-24 09:07] LABS: CREATININE,URINE 66.7 mg/dL (Not Estab.)
[2021-01-24 12:00] VITALS: BP 138/71
[2021-01-24 16:00] VITALS: BP 131/64
[2021-01-24 20:00] VITALS: BP 135/59
[2021-01-25] VITALS: BP 139/50
[2021-01-25 05:54] LABS: ALBUMIN 2.8 gm/dl (3.1-4.5); CREATININE 1.43 mg/dL (0.55-1.02); POTASSIUM 5.3 mmol/L (3.5-5.1)
[2021-01-25 05:58] LABS: TOTAL PROTEIN 7.3 gm/dL (6.4-8.2)
[2021-01-25 06:11] LABS: BASO % 0.3 % (0.0-1.0); HEMATOCRIT 24.1 % (37.0-47.0); LYMPH # 0.4 10*3/uL (1.3-4.4); MEAN CORPUSCULAR HGB 29.8 pg (27.0-31.0); MEAN CORPUSCULAR HGB CONC 32.4 g/dl (33.0-37.0); MONO # 0.1 10*3/uL (0.1-1.0); MONO % 3.4 % (3.0-9.0); NEUT % 85.7 % (47.0-73.0); PLATELET COUNT AUTOMATED 361 10*3/uL (130-400); RED BLOOD COUNT 2.62 10*6/uL (4.10-5.10); RED CELL DISTRI WIDTH 16.3 % (0-14.5); WHITE BLOOD COUNT 3.5 10*3/uL (4.8-10.8)
[2021-01-25 08:00] VITALS: BP 164/70
[2021-01-25 12:00] VITALS: BP 157/64
[2021-01-25 16:00] VITALS: BP 150/67
[2021-01-25 20:00] VITALS: BP 142/60; BP 173/73
[2021-01-26] VITALS: BP 157/63
[2021-01-26 06:17] LABS: HEMATOCRIT 22.6 % (37.0-47.0); LYMPH # 0.7 10*3/uL (1.3-4.4); LYMPH % 8.7 % (27.0-41.0); MEAN CELL VOLUME 90.8 fl (81.0-99.0); MEAN CORPUSCULAR HGB 30.1 pg (27.0-31.0); MEAN CORPUSCULAR HGB CONC 33.2 g/dl (33.0-37.0); MEAN PLATELET VOLUME 9.9 fl (9.6-12.3); MONO # 0.2 10*3/uL (0.1-1.0); MONO % 2.9 % (3.0-9.0); NEUT # 6.6 10*3/uL (2.3-7.9); NEUT % 87.7 % (47.0-73.0); PLATELET COUNT AUTOMATED 379 10*3/uL (130-400); RED BLOOD COUNT 2.49 10*6/uL (4.10-5.10); WHITE BLOOD COUNT 7.6 10*3/uL (4.8-10.8)
[2021-01-26 06:26] LABS: POTASSIUM 4.6 mmol/L (3.5-5.1)
[2021-01-26 06:36] LABS: ALBUMIN 2.8 gm/dl (3.1-4.5); CREATININE 1.37 mg/dL (0.55-1.02); TOTAL PROTEIN 7.1 gm/dL (6.4-8.2)
[2021-01-26 08:00] VITALS: BP 153/68
[2021-01-26 12:00] VITALS: BP 162/79
[2021-01-26 16:00] VITALS: BP 168/79
[2021-01-26 20:00] VITALS: BP 159/75
[2021-01-27] VITALS: BP 182/72
[2021-01-27 05:36] LABS: ALBUMIN 2.9 gm/dl (3.1-4.5); CREATININE 1.3 mg/dL (0.55-1.02); POTASSIUM 4.4 mmol/L (3.5-5.1); TOTAL PROTEIN 7.2 gm/dL (6.4-8.2)
[2021-01-27 05:53] LABS: HEMATOCRIT 23.9 % (37.0-47.0); MEAN CELL VOLUME 89.8 fl (81.0-99.0); MEAN CORPUSCULAR HGB 30.5 pg (27.0-31.0); MEAN CORPUSCULAR HGB CONC 33.9 g/dl (33.0-37.0); MEAN PLATELET VOLUME 9.8 fl (9.6-12.3); PLATELET COUNT AUTOMATED 411 10*3/uL (130-400); RED BLOOD COUNT 2.66 10*6/uL (4.10-5.10); WHITE BLOOD COUNT 9.5 10*3/uL (4.8-10.8)
[2021-01-27 06:53] LABS: BASOPHILS 1 % (0-1); PLATELET SUFFICIENCY HIGH (NORMAL); TOTAL CELLS COUNTED 100 #CELLS
[2021-01-27 08:00] VITALS: BP 188/86
[2021-01-27 12:00] VITALS: BP 166/65
[2021-01-27 16:00] VITALS: BP 152/61
[2021-01-27 20:00] VITALS: BP 154/89
[2021-01-28] VITALS: BP 171/89
[2021-01-28 06:06] LABS: HEMATOCRIT 25.9 % (37.0-47.0); MEAN CELL VOLUME 92.2 fl (81.0-99.0); MEAN CORPUSCULAR HGB 29.9 pg (27.0-31.0); MEAN CORPUSCULAR HGB CONC 32.4 g/dl (33.0-37.0); MEAN PLATELET VOLUME 9.7 fl (9.6-12.3); NUCLEATED RED BLOOD CELL 0.2 % (0.0-0.0); PLATELET COUNT AUTOMATED 379 10*3/uL (130-400); RED BLOOD COUNT 2.81 10*6/uL (4.10-5.10); WHITE BLOOD COUNT 12.5 10*3/uL (4.8-10.8)
[2021-01-28 06:26] LABS: CHLORIDE 101 mmol/L (98-107); POTASSIUM 4.2 mmol/L (3.5-5.1); SODIUM 135 mmol/L (136-145)
[2021-01-28 06:34] LABS: ALBUMIN 2.9 gm/dl (3.1-4.5); ALKALINE PHOSPHATASE 69 U/L (45-117); BUN 35 mg/dl (7-24); CPK 27 U/L (26-192); CREATININE 1.12 mg/dL (0.55-1.02); SGOT/AST 19 IU/L (3-35); SGPT/ALT 39 U/L (12-78); TOTAL PROTEIN 6.9 gm/dL (6.4-8.2)
[2021-01-28 07:23] LABS: PLATELET SUFFICIENCY NORMAL (NORMAL); TOTAL CELLS COUNTED 100 #CELLS
[2021-01-28 08:00] VITALS: BP 172/79
[2021-01-28 16:00] VITALS: BP 130/62
[2021-01-28 20:00] VITALS: BP 133/59
[2021-01-29] VITALS: BP 168/61
[2021-01-29 05:16] LABS: ALBUMIN 2.9 gm/dl (3.1-4.5); ALKALINE PHOSPHATASE 71 U/L (45-117); BUN 44 mg/dl (7-24); CHLORIDE 100 mmol/L (98-107); CPK 28 U/L (26-192); POTASSIUM 4.2 mmol/L (3.5-5.1); SGOT/AST 16 IU/L (3-35); SGPT/ALT 37 U/L (12-78); SODIUM 134 mmol/L (136-145); TOTAL PROTEIN 6.8 gm/dL (6.4-8.2)
[2021-01-29 06:18] LABS: HEMATOCRIT 25.8 % (37.0-47.0); MEAN CELL VOLUME 92.1 fl (81.0-99.0); MEAN CORPUSCULAR HGB 30.4 pg (27.0-31.0); MEAN CORPUSCULAR HGB CONC 32.9 g/dl (33.0-37.0); MEAN PLATELET VOLUME 9.8 fl (9.6-12.3); NUCLEATED RED BLOOD CELL 0.2 % (0.0-0.0); PLATELET COUNT AUTOMATED 372 10*3/uL (130-400); RED CELL DISTRI WIDTH 16.2 % (0-14.5); WHITE BLOOD COUNT 12.7 10*3/uL (4.8-10.8)
[2021-01-29 07:22] LABS: PLATELET SUFFICIENCY NORMAL (NORMAL); POLYCHROMASIA SLIGHT; TOTAL CELLS COUNTED 100 #CELLS
[2021-01-29 07:23] LABS: OVALOCYTES FEW; SCHISTOCYTES FEW
[2021-01-29 08:00] VITALS: BP 167/51
[2021-01-29 12:00] VITALS: BP 154/74
== END 2021-01-29 15:15 | disposition home health service (06) | DRG 177 ==
LOC: ED 23:13 → 4E 01-19 03:28 → EDHOLD 01-19 03:28 → 5E 01-19 03:28 → 4E 01-23 21:11
PROVIDERS: Emergency Medicine; Internal Medicine; Internal Medicine Critical Care Medicine; Internal Medicine Nephrology; ADMIT Internal Medicine; ATTEND Internal Medicine
PROC: XW033E5 Introduction of Remdesivir Anti-infective into Peripheral Vein, Percutaneous Approach, New Technology Group 5 (ICD-10-PCS; principal; 2021-01-25)
DX: U07.1 COVID-19 (principal); N17.0 Acute kidney failure with tubular necrosis; J96.21 Acute and chronic respiratory failure with hypoxia; J12.82 Pneumonia due to coronavirus disease 2019; I13.0 Hypertensive heart and chronic kidney disease with heart failure and stage 1 through stage 4 chronic kidney disease, or unspecified chronic kidney disease; I50.32 Chronic diastolic (congestive) heart failure; K92.2 Gastrointestinal hemorrhage, unspecified; I48.21 Permanent atrial fibrillation; F33.9 Major depressive disorder, recurrent, unspecified; E87.1 Hypo-osmolality and hyponatremia; N18.4 Chronic kidney disease, stage 4 (severe); M06.9 Rheumatoid arthritis, unspecified; A08.4 Viral intestinal infection, unspecified; E11.22 Type 2 diabetes mellitus with diabetic chronic kidney disease; R62.7 Adult failure to thrive; I25.10 Atherosclerotic heart disease of native coronary artery without angina pectoris; E86.0 Dehydration; E11.649 Type 2 diabetes mellitus with hypoglycemia without coma; I95.9 Hypotension, unspecified; E11.42 Type 2 diabetes mellitus with diabetic polyneuropathy; K59.00 Constipation, unspecified; D63.8 Anemia in other chronic diseases classified elsewhere; E11.65 Type 2 diabetes mellitus with hyperglycemia; E83.51 Hypocalcemia; E87.5 Hyperkalemia; Z79.4 Long term (current) use of insulin; Z99.81 Dependence on supplemental oxygen; Z68.39 Body mass index [BMI] 39.0-39.9, adult; Z95.5 Presence of coronary angioplasty implant and graft; Z91.041 Radiographic dye allergy status; Z90.710 Acquired absence of both cervix and uterus; Z82.49 Family history of ischemic heart disease and other diseases of the circulatory system; Z68.38 Body mass index [BMI] 38.0-38.9, adult

== ENCOUNTER 2022-03-16 11:01 | Inpatient (IN) | payer OTHER ==
[~2022-03-16] VITALS: Ht 170.1 cm; Wt 109.3 kg
[2022-03-16 11:24] VITALS: BP 150/73
[2022-03-16 12:00] VITALS: BP 150/73
[2022-03-16] MEDS ORDERED: FARXIGA5 M1 PO (12:45)
[2022-03-16] MEDS ORDERED: HYDROXYZINE HCL25 MG PO (12:45)
[2022-03-16 13:17] LABS: BASO # 0.1 10*3/uL (0.0-0.1); BASO % 0.6 % (0.0-1.0); EOS # 0.3 10*3/uL (0.0-0.4); HEMATOCRIT 33.9 % (37.0-47.0); LYMPH # 1.7 10*3/uL (1.3-4.4); LYMPH % 18.5 % (27.0-41.0); MEAN CELL VOLUME 93.6 fl (81.0-99.0); MEAN CORPUSCULAR HGB 29.6 pg (27.0-31.0); MEAN CORPUSCULAR HGB CONC 31.6 g/dl (33.0-37.0); MEAN PLATELET VOLUME 9.4 fl (9.6-12.3); MONO # 0.4 10*3/uL (0.1-1.0); MONO % 4.1 % (3.0-9.0); NEUT # 6.6 10*3/uL (2.3-7.9); NEUT % 72.9 % (47.0-73.0); PLATELET COUNT AUTOMATED 202 10*3/uL (130-400); RED BLOOD COUNT 3.62 10*6/uL (4.10-5.10); RED CELL DISTRI WIDTH 17.8 % (0-14.5)
[2022-03-16 13:30] LABS: CREATININE 1.58 mg/dL (0.55-1.02); POTASSIUM 4.1 mmol/L (3.5-5.1)
[2022-03-16 16:00] VITALS: BP 144/64
[2022-03-16 20:00] VITALS: BP 133/67
[2022-03-17] VITALS: BP 152/62
[2022-03-17 08:00] VITALS: BP 156/76
[2022-03-17 12:00] VITALS: BP 142/71
[2022-03-17 16:00] VITALS: BP 115/57
[2022-03-17 20:00] VITALS: BP 155/70
[2022-03-18] VITALS: BP 161/71
[2022-03-18 08:00] VITALS: BP 154/80
[2022-03-18 12:00] VITALS: BP 150/57
[2022-03-18 16:00] VITALS: BP 159/61
[2022-03-18 20:00] VITALS: BP 151/68
[2022-03-19] VITALS: BP 161/81
[2022-03-19 06:28] LABS: BASO % 0.5 % (0.0-1.0); EOS # 0.2 10*3/uL (0.0-0.4); EOS % 3.3 % (1.0-4.0); HEMATOCRIT 33.7 % (37.0-47.0); LYMPH # 1.8 10*3/uL (1.3-4.4); LYMPH % 27.5 % (27.0-41.0); MEAN CELL VOLUME 93.1 fl (81.0-99.0); MEAN CORPUSCULAR HGB 29.8 pg (27.0-31.0); MEAN PLATELET VOLUME 9.9 fl (9.6-12.3); MONO # 0.8 10*3/uL (0.1-1.0); MONO % 12.8 % (3.0-9.0); NEUT # 3.6 10*3/uL (2.3-7.9); NEUT % 55.1 % (47.0-73.0); PLATELET COUNT AUTOMATED 204 10*3/uL (130-400); RED BLOOD COUNT 3.62 10*6/uL (4.10-5.10); RED CELL DISTRI WIDTH 18.1 % (0-14.5); WHITE BLOOD COUNT 6.6 10*3/uL (4.8-10.8)
[2022-03-19 06:36] LABS: CREATININE 1.2 mg/dL (0.55-1.02); POTASSIUM 3.9 mmol/L (3.5-5.1)
[2022-03-19 06:38] LABS: TOTAL PROTEIN 7.4 gm/dL (6.4-8.2)
[2022-03-19] MEDS ORDERED: LASIX20 MG PO (07:46)
[2022-03-19] MEDS ORDERED: METOPROLOL SUCC25 M2 PO (07:46)
[2022-03-19] MEDS ORDERED: SIMVASTATIN10 MG PO (07:46)
[2022-03-19] MEDS ORDERED: VIBRAMYCIN HYC100 MG PO (07:47)
[2022-03-19 08:00] VITALS: BP 151/69
== END 2022-03-19 11:23 | disposition home health service (06) | DRG 177 ==
LOC: 5E 11:01
PROVIDERS: ADMIT Internal Medicine; ATTEND Internal Medicine
DX: J15.6 Pneumonia due to other Gram-negative bacteria (principal); J96.21 Acute and chronic respiratory failure with hypoxia; E44.1 Mild protein-calorie malnutrition; N17.9 Acute kidney failure, unspecified; J44.0 Chronic obstructive pulmonary disease with (acute) lower respiratory infection; E11.22 Type 2 diabetes mellitus with diabetic chronic kidney disease; N18.32 Chronic kidney disease, stage 3b; M06.9 Rheumatoid arthritis, unspecified; I25.10 Atherosclerotic heart disease of native coronary artery without angina pectoris; I12.9 Hypertensive chronic kidney disease with stage 1 through stage 4 chronic kidney disease, or unspecified chronic kidney disease; J20.9 Acute bronchitis, unspecified; I48.91 Unspecified atrial fibrillation; D64.9 Anemia, unspecified; S31.104A Unspecified open wound of abdominal wall, left lower quadrant without penetration into peritoneal cavity, initial encounter; B02.9 Zoster without complications; I51.7 Cardiomegaly; Z95.5 Presence of coronary angioplasty implant and graft; Z68.37 Body mass index [BMI] 37.0-37.9, adult

== ENCOUNTER → 2022-10-27 | Outpatient (CLI) | payer OTHER ==
[~2022-10-27] MED LIST changes: +AMOX-CLAV 875-1 EACH PO; +BUDESONIDE0.5 MG/2 M NEB; +CRESTOR40 M1 PO; +FARXIGA5 M1 PO; +HUMULIN R100 UNIT/1 SC; +HYDROXYZINE HCL25 MG PO; +Ipratropium Brom3 ML NEB; +LASIX20 MG PO; +POTASSIUM CHLO20 ME3 PO; +PREDNISONE5 MG PO; +SIMVASTATIN10 MG PO; +VIBRAMYCIN HYC100 MG PO; +VIBRAMYCIN100 MG PO; +[UNRECOGNIZED DRUG - OTHER] PO
== END | disposition home or self-care (01) ==
LOC: CT 09:53
PROVIDERS: ATTEND Internal Medicine Critical Care Medicine
DX: I28.1 Aneurysm of pulmonary artery (principal); J43.9 Emphysema, unspecified; I51.7 Cardiomegaly; I25.10 Atherosclerotic heart disease of native coronary artery without angina pectoris; I77.810 Thoracic aortic ectasia; J96.11 Chronic respiratory failure with hypoxia; J45.50 Severe persistent asthma, uncomplicated; J84.113 Idiopathic non-specific interstitial pneumonitis; Z99.81 Dependence on supplemental oxygen; Z68.36 Body mass index [BMI] 36.0-36.9, adult

== ENCOUNTER → 2023-01-21 | Outpatient (CLI) | payer OTHER ==
[~2023-01-21] MED LIST changes: +ACETAZOLAMIDE250 MG PO; -GABAPENTIN300 M1 PO; +HUMALOG100 UNIT/2 SC; +NEURONTIN300 MG PO; +ROSUVASTATIN CA10 MG PO
[2023-01-21 13:38] LABS: BASO % 0.3 % (0.0-1.0); EOS # 0.2 10*3/uL (0.0-0.4); EOS % 2.6 % (1.0-4.0); HEMATOCRIT 31.4 % (37.0-47.0); LYMPH # 2.5 10*3/uL (1.3-4.4); LYMPH % 26.4 % (27.0-41.0); MEAN CORPUSCULAR HGB 28.7 pg (27.0-31.0); MEAN CORPUSCULAR HGB CONC 30.6 g/dl (33.0-37.0); MEAN PLATELET VOLUME 9.2 fl (9.6-12.3); MONO # 0.9 10*3/uL (0.1-1.0); NEUT # 5.6 10*3/uL (2.3-7.9); NEUT % 60.2 % (47.0-73.0); PLATELET COUNT AUTOMATED 270 10*3/uL (130-400); RED BLOOD COUNT 3.34 10*6/uL (4.10-5.10); RED CELL DISTRI WIDTH 15.9 % (0-14.5); WHITE BLOOD COUNT 9.4 10*3/uL (4.8-10.8)
[2023-01-21 14:18] LABS: POTASSIUM 3.9 mmol/L (3.4-5.1)
== END | disposition home or self-care (01) ==
LOC: LAB 13:13
PROVIDERS: ATTEND Internal Medicine Cardiovascular Disease
DX: Z01.818 Encounter for other preprocedural examination (principal); I25.10 Atherosclerotic heart disease of native coronary artery without angina pectoris; I48.91 Unspecified atrial fibrillation

== ENCOUNTER → 2023-09-22 | Outpatient (CLI) | payer OTHER ==
[~2023-09-22] MED LIST changes: +ALDACTONE25 MG PO; +ASPIRIN81 M1 PO; +CEFUROXIME AXE250 MG PO; +FARXIGA10 M1 PO; +FUROSEMIDE40 MG PO; +HUMALOG100 UNIT/1 SQ; +Hydralazine Hyd25 MG PO; +PANTOPRAZOLE SO40 MG PO
[2023-09-22 16:18] LABS: POTASSIUM 4.3 mmol/L (3.4-5.1)
== END | disposition home or self-care (01) ==
LOC: LAB 15:14
PROVIDERS: Internal Medicine; ATTEND Internal Medicine Cardiovascular Disease
DX: I50.9 Heart failure, unspecified (principal); E87.5 Hyperkalemia

== ENCOUNTER 2023-12-22 12:24 | Inpatient (IN) | payer OTHER ==
[~2023-12-22] VITALS: Ht 167.6 cm; Wt 120.2 kg
[~2023-12-22 12:24] MED LIST changes: +CYCLOBENZAPRINE5 M3 PO; +Lantus SC; +XANAX0.25 MG PO
[2023-12-22] MEDS ORDERED: FUROSEMIDE 40 MG/4 ML VIAL IV ONE (12:35)
[2023-12-22 12:36] VITALS: BP 159/74
[2023-12-22 12:52] LABS: BASO # 0.1 10*3/uL (0.0-0.1); BASO % 0.7 % (0.0-1.0); EOS # 0.3 10*3/uL (0.0-0.4); EOS % 3.4 % (1.0-4.0); HEMATOCRIT 32.2 % (37.0-47.0); LYMPH # 1.4 10*3/uL (1.3-4.4); LYMPH % 18.7 % (27.0-41.0); MEAN CELL VOLUME 96.4 fl (81.0-99.0); MEAN CORPUSCULAR HGB 27.8 pg (27.0-31.0); MEAN CORPUSCULAR HGB CONC 28.9 g/dl (33.0-37.0); MEAN PLATELET VOLUME 10.1 fl (9.6-12.3); MONO # 0.7 10*3/uL (0.1-1.0); NEUT % 67.9 % (47.0-73.0); PLATELET COUNT AUTOMATED 218 10*3/uL (130-400); RED BLOOD COUNT 3.34 10*6/uL (4.10-5.10); RED CELL DISTRI WIDTH 17.9 % (0-14.5); WHITE BLOOD COUNT 7.4 10*3/uL (4.8-10.8)
[2023-12-22 13:20] LABS: ALKALINE PHOSPHATASE 90 U/L (46-116); BUN 30 mg/dl (9-23); CHLORIDE 107 mmol/L (98-107); POTASSIUM 4.6 mmol/L (3.4-5.1); TOTAL PROTEIN 6.9 gm/dL (6.0-8.0)
[2023-12-22 13:24] LABS: SGPT/ALT < 7 U/L (5-49)
[2023-12-22 14:58] LABS: BILIRUBIN Negative (Negative); BLOOD Trace-Lysed (Negative); CLARITY Clear (Clear); COLOR Yellow (Yellow); GLUCOSE Negative (Negative); KETONE Negative (Negative); LEUKO ESTERASE Negative (Negative); NITRITE Negative (Negative); SPECIFIC GRAVITY 1.015 (1.001-1.030); UROBILINOGEN 0.2 E.U./dl (0.0-1.0)
[2023-12-22 15:03] LABS: RBC 0-2 rbc/hpf (0-2); WBC 0-2 wbc/hpf (0-5)
[2023-12-22 15:30] VITALS: BP 165/85
[2023-12-22] MEDS ORDERED: GLIMEPIRIDE4 M1 PO (16:28)
[2023-12-22] MEDS ORDERED: LANTUS SOL100 UNIT/1 SC (16:30)
[2023-12-22] MEDS ORDERED: BUMETANIDE 1 MG/4 ML VIAL IV SCH (16:55)
[2023-12-22] MEDS ORDERED: GLIMEPIRIDE 2 MG TAB PO SCH (18:00)
[2023-12-22] MEDS ORDERED: Pantoprazole Sodium 40 MG TAB PO SCH (18:00)
[2023-12-22] MEDS ORDERED: BUMETANIDE 12.5 MG in SYRINGE INFUSION 0 ML IV SCH (18:00)
[2023-12-22] MEDS ORDERED: CALCIUM CARBONATE/VITAMIN D3 500 MG/200 IU TABLET PO SCH (18:00)
[2023-12-22] MEDS ORDERED: Albuterol Sulf/Ipratropium 3 ML VIAL NEB SCH (18:55)
[2023-12-22 20:00] VITALS: BP 148/82; BP 180/93
[2023-12-22] MEDS ORDERED: GABAPENTIN 300 MG CAP PO SCH (22:00)
[2023-12-22] MEDS ORDERED: ATORVASTATIN CALCIUM 20 MG TAB PO SCH (22:00)
[2023-12-22] MEDS ORDERED: hydrALAZINE hydrochloride 25 MG TAB PO SCH (22:00)
[2023-12-23] VITALS: BP 150/78
[2023-12-23 06:12] LABS: POTASSIUM 4.6 mmol/L (3.4-5.1)
[2023-12-23] MEDS ORDERED: INSULIN REGULAR, HUMAN 1 UNIT/0.01 ML SC SCH (07:30)
[2023-12-23 08:00] VITALS: BP 169/82
[2023-12-23 09:01] LABS: BASO % 0.2 % (0.0-1.0); HEMATOCRIT 32.2 % (37.0-47.0); LYMPH # 0.8 10*3/uL (1.3-4.4); MEAN CELL VOLUME 94.2 fl (81.0-99.0); MEAN CORPUSCULAR HGB 28.1 pg (27.0-31.0); MEAN CORPUSCULAR HGB CONC 29.8 g/dl (33.0-37.0); MEAN PLATELET VOLUME 9.7 fl (9.6-12.3); MONO # 0.4 10*3/uL (0.1-1.0); MONO % 7.1 % (3.0-9.0); NEUT # 4.7 10*3/uL (2.3-7.9); NEUT % 78.4 % (47.0-73.0); PLATELET COUNT AUTOMATED 232 10*3/uL (130-400); RED BLOOD COUNT 3.42 10*6/uL (4.10-5.10); RED CELL DISTRI WIDTH 17.6 % (0-14.5); WHITE BLOOD COUNT 5.9 10*3/uL (4.8-10.8)
[2023-12-23 09:32] LABS: POTASSIUM 4.4 mmol/L (3.4-5.1)
[2023-12-23] MEDS ORDERED: METOPROLOL SUCCINATE XR 50 MG TAB PO SCH (10:00)
[2023-12-23] MEDS ORDERED: ISOSORBIDE MONONITRATE 30 MG TAB PO SCH (10:00)
[2023-12-23] MEDS ORDERED: amLODIPine besylate 10 MG TAB PO SCH (10:00)
[2023-12-23] MEDS ORDERED: Clopidogrel Hydrogen Sulfate 75 MG TAB PO SCH (10:00)
[2023-12-23 12:00] VITALS: BP 147/75
[2023-12-23 16:00] VITALS: BP 167/87
[2023-12-23 18:00] VITALS: BP 167/87
[2023-12-23 20:00] VITALS: BP 145/76
[2023-12-23] MEDS ORDERED: Insulin Glargine, Recombinan 1 UNIT/0.01 ML SC SCH (22:00)
[2023-12-24] VITALS: BP 169/80
[2023-12-24 06:18] LABS: POTASSIUM 4.1 mmol/L (3.4-5.1)
[2023-12-24 06:35] LABS: BASO # 0.1 10*3/uL (0.0-0.1); BASO % 0.6 % (0.0-1.0); EOS # 0.2 10*3/uL (0.0-0.4); EOS % 2.4 % (1.0-4.0); HEMATOCRIT 33.8 % (37.0-47.0); LYMPH # 1.8 10*3/uL (1.3-4.4); LYMPH % 21.9 % (27.0-41.0); MEAN CELL VOLUME 95.2 fl (81.0-99.0); MEAN CORPUSCULAR HGB 27.3 pg (27.0-31.0); MEAN CORPUSCULAR HGB CONC 28.7 g/dl (33.0-37.0); MEAN PLATELET VOLUME 10.4 fl (9.6-12.3); MONO # 0.7 10*3/uL (0.1-1.0); MONO % 8.8 % (3.0-9.0); NEUT # 5.5 10*3/uL (2.3-7.9); NEUT % 66.1 % (47.0-73.0); PLATELET COUNT AUTOMATED 265 10*3/uL (130-400); RED BLOOD COUNT 3.55 10*6/uL (4.10-5.10); RED CELL DISTRI WIDTH 17.6 % (0-14.5); WHITE BLOOD COUNT 8.3 10*3/uL (4.8-10.8)
[2023-12-24] MEDS ORDERED: Benzocaine/Menthol 1 LOZ LOZENGE PO PRN (07:50)
[2023-12-24 08:00] VITALS: BP 171/81
[2023-12-24] MEDS ORDERED: GLIMEPIRIDE 2 MG TAB PO SCH (08:00)
[2023-12-24 12:00] VITALS: BP 144/77
[2023-12-24 16:00] VITALS: BP 140/62
[2023-12-24 20:00] VITALS: BP 155/68
[2023-12-24] MEDS ORDERED: BISACODYL 5 MG TAB PO ONE (21:40)
[2023-12-25] VITALS: BP 159/72
[2023-12-25 08:00] VITALS: BP 157/72
[2023-12-25] MEDS ORDERED: FUROSEMIDE 40 MG/4 ML VIAL IV SCH (10:00)
[2023-12-25 12:00] VITALS: BP 156/76
[2023-12-25 16:00] VITALS: BP 139/61
[2023-12-25 20:00] VITALS: BP 160/78
[2023-12-26] VITALS: BP 155/67
[2023-12-26 06:14] LABS: BASO # 0.1 10*3/uL (0.0-0.1); BASO % 0.7 % (0.0-1.0); EOS # 0.3 10*3/uL (0.0-0.4); EOS % 4.4 % (1.0-4.0); HEMATOCRIT 35.1 % (37.0-47.0); LYMPH # 1.4 10*3/uL (1.3-4.4); LYMPH % 20.8 % (27.0-41.0); MEAN CELL VOLUME 94.6 fl (81.0-99.0); MEAN CORPUSCULAR HGB 27.5 pg (27.0-31.0); MEAN CORPUSCULAR HGB CONC 29.1 g/dl (33.0-37.0); MEAN PLATELET VOLUME 9.7 fl (9.6-12.3); MONO # 0.8 10*3/uL (0.1-1.0); NEUT # 4.3 10*3/uL (2.3-7.9); NEUT % 62.8 % (47.0-73.0); PLATELET COUNT AUTOMATED 222 10*3/uL (130-400); RED BLOOD COUNT 3.71 10*6/uL (4.10-5.10); RED CELL DISTRI WIDTH 17.3 % (0-14.5); WHITE BLOOD COUNT 6.8 10*3/uL (4.8-10.8)
[2023-12-26 06:41] LABS: POTASSIUM 4.1 mmol/L (3.4-5.1)
[2023-12-26 08:00] VITALS: BP 155/73
[2023-12-26] MEDS ORDERED: acetaZOLAMIDE 250 MG TAB PO SCH (10:00)
[2023-12-26 12:00] VITALS: BP 146/63
[2023-12-26 16:00] VITALS: BP 137/64
[2023-12-26 20:00] VITALS: BP 142/65
[2023-12-26] MEDS ORDERED: ACETAMINOPHEN 500 MG TAB PO PRN (20:10)
[2023-12-26] MEDS ORDERED: ACETAMINOPHEN 325 MG TAB PO PRN (20:16)
[2023-12-27] VITALS: BP 140/58
[2023-12-27 08:00] VITALS: BP 164/79
[2023-12-27 12:00] VITALS: BP 160/73
[2023-12-27 16:00] VITALS: BP 156/77
[2023-12-27 20:00] VITALS: BP 155/69
[2023-12-28] VITALS: BP 148/67
[2023-12-28 08:00] VITALS: BP 141/76
[2023-12-28] MEDS ORDERED: ACETAZOLAMIDE250 MG PO (08:32)
== END 2023-12-28 11:03 | DRG 291 ==
LOC: ED 12:24 → EDHOLD 13:55 → 4E 13:55 → EDHOLD 13:58 → 4E 14:14
PROVIDERS: Nurse Practitioner; ADMIT Internal Medicine; ATTEND Internal Medicine
PROC: 5A09357 Assistance with Respiratory Ventilation, Less than 24 Consecutive Hours, Continuous Positive Airway Pressure (ICD-10-PCS; 2023-12-23)
PROC: 5A09357 Assistance with Respiratory Ventilation, Less than 24 Consecutive Hours, Continuous Positive Airway Pressure (ICD-10-PCS; 2023-12-24)
PROC: 5A09357 Assistance with Respiratory Ventilation, Less than 24 Consecutive Hours, Continuous Positive Airway Pressure (ICD-10-PCS; 2023-12-25)
PROC: 5A09357 Assistance with Respiratory Ventilation, Less than 24 Consecutive Hours, Continuous Positive Airway Pressure (ICD-10-PCS; 2023-12-27)
PROC: 5A09357 Assistance with Respiratory Ventilation, Less than 24 Consecutive Hours, Continuous Positive Airway Pressure (ICD-10-PCS; principal; 2023-12-28)
DX: I13.0 Hypertensive heart and chronic kidney disease with heart failure and stage 1 through stage 4 chronic kidney disease, or unspecified chronic kidney disease (principal); I50.33 Acute on chronic diastolic (congestive) heart failure; N18.4 Chronic kidney disease, stage 4 (severe); J96.12 Chronic respiratory failure with hypercapnia; J84.9 Interstitial pulmonary disease, unspecified; E87.3 Alkalosis; Z68.42 Body mass index [BMI] 45.0-49.9, adult; E11.65 Type 2 diabetes mellitus with hyperglycemia; I25.10 Atherosclerotic heart disease of native coronary artery without angina pectoris; E11.42 Type 2 diabetes mellitus with diabetic polyneuropathy; R62.7 Adult failure to thrive; I48.0 Paroxysmal atrial fibrillation; G47.33 Obstructive sleep apnea (adult) (pediatric); M06.9 Rheumatoid arthritis, unspecified; E11.22 Type 2 diabetes mellitus with diabetic chronic kidney disease; K57.30 Diverticulosis of large intestine without perforation or abscess without bleeding; Z91.041 Radiographic dye allergy status

== ENCOUNTER → 2025-01-28 | Outpatient (CLI) | payer MEDICARE ==
[~2025-01-28] MED LIST changes: +ARAVA20 MG PO; +DOXYCYCLINE MO100 MG PO
== END | disposition home or self-care (01) ==
LOC: LAB 15:43
PROVIDERS: ATTEND Internal Medicine
DX: I12.9 Hypertensive chronic kidney disease with stage 1 through stage 4 chronic kidney disease, or unspecified chronic kidney disease (principal); N18.32 Chronic kidney disease, stage 3b